=== PATIENT | male | born 1945 | race Caucasian/White ===

== ENCOUNTER → 2017-01-30 | Outpatient (CLI) | payer MEDICARE ==
[~2017-01-30] MED LIST: REGADENOSON 0.4 MG/5 ML SYRINGE IV ONE
--- NOTE | 2017-01-30 11:43 | NM ---
EXAMINATION TYPE: NM stress lexiscan cardiolite DATE OF EXAM: 01/30/2017 COMPARISON: NONE HISTORY: 71-year-old male with chest pain TECHNIQUE: After the intravenous administration of 9.8 mCi Tc 99m Sestamibi - Cardiolite resting SPE CT images acquired 45 minutes post injection. The patient received 0.4mg Lexiscan, 26.85 mCi Tc 99m Sestamibi - Stress images obtained 30 minutes p ost injection FINDINGS: Review of stress and rest SPECT images demonstrates decreased perfusion along the mid to basal inferi or wall on both rest and stress images. Wall diaphragmatic attenuation as possible, there may be some hypokinesis on the gated images. No distinct reversible perfusion abnormality is identified. Gated a nalysis shows estimated left ventricular ejection fraction of 59 %. TID is calculated at 0.9, normal . IMPRESSION: Findings equivocal for diaphragmatic attenuation or old mid to basal inferior wall infarct. No defini te suspicious reversibility.
--- NOTE | 2017-01-30 14:41 | EST ---
DATE OF SERVICE: 01/30/2017 TYPE OF REPORT: LEXISCAN CARDIOLITE STRESS TEST INDICATION: Chest pain. BASELINE HEART RATE: 76 BASELINE BLOOD PRESSURE: 127/75 MAXIMUM HEART RATE: 81 MAXIMUM BLOOD PRESSURE: 130/84 85% MPHR: 128 100% MPHR: 151 METS: - MAXIMUM STAGE REACHED: - TOTAL EXERCISE TIME: - Baseline EKG revealed atrial fibrillation, controlled ventricular rate, nonspecific ST-T changes with Lexiscan imaging. Heart rate was changed from 76 to 81 beats per minute and blood pressure changed from 125/75 to 130/84. EKG remained inconclusive and patient did not have any clearcut angina. IMPRESSION: 1. By EKG criteria, this is an inconclusive Lexiscan stress test with underlying atrial fibrillation and nonspecific ST-T changes. 2. The nuclear scan results which are more pertinent, will be reported by the radiologist. EDUARDO
== END ==
LOC: RADNMMAIN 08:22
PROVIDERS: ATTEND Family Medicine
DX: I48.0 Paroxysmal atrial fibrillation (principal); R07.89 Other chest pain
CPT/HCPCS: 93017; 78452; A9500; J2785

== ENCOUNTER → 2021-02-27 | Outpatient (CLI) | payer MEDICARE ==
[~2021-02-27] MED LIST changes: -REGADENOSON 0.4 MG/5 ML SYRINGE IV ONE; +REGADENOSON 0.4 MG/5 ML SYRINGE IV PRN
--- NOTE | 2021-02-27 13:24 | NM ---
EXAMINATION TYPE: NM stress lexiscan cardiolite DATE OF EXAM: 02/27/2021 COMPARISON: Earlier nuclear medicine stress test January 30, 2017 HISTORY: History of emphysema and family history of heart attack along with personal history of hyper tension and hypercholesterolemia and diabetes. Patient presents with chest pain and difficulty in og athing. TECHNIQUE: After the intravenous administration of 9.7 mCi Tc 99m Sestamibi - Cardiolite resting SPE CT images acquired 45 minutes post injection. The patient received 0.4mg Lexiscan, 26.6 mCi Tc 99m Sestamibi - Stress images obtained [address] injection FINDINGS: Review of stress and rest SPECT images demonstrates areas of diminished radiotracer uptake anterosept al wall with apical levels similar to prior suggestive of old infarct. No reversible ischemia on toda y's study. Gated analysis shows overall estimated left ventricular ejection fraction of 50 % on curr ent study. IMPRESSION: No scintigraphic evidence for reversible ischemia. No significant change from prior.
--- NOTE | 2021-02-27 14:32 | EST ---
EXERCISE STRESS AGE: 75 SEX: M HT: 5'9" WT: 285 lbs. PROTOCOL: Lexiscan STAGE: NA DURATION OF EXERCISE: NA HEART RATE REST: 77 BLOOD PRESSURE REST: 136/87 MAXIMUM HEART RATE ACHIEVED: 86 MAXIMUM BLOOD PRESSURE: 137/83 85% MPHR: 125 100% MPHR: 147 METS: NA INDICATIONS: Chest pain CLINICAL INFORMATION: STRESS DATA: Heart rate 77, pressure is 136/87 mmHg. Baseline EKG showed atrial fibrillation. 0.4 mg of Lexiscan given over 15 seconds per protocol. Max heart rate was 86 beats per minute and maximum pressure was 136/87 mmHg. Clinically, the patient did not have any symptoms and the EKG did not show any significant ST or T-wave abnormalities concerning for ischemia. CONCLUSION: 1. Nondiagnostic electrocardiogram stress testing in response to Lexiscan. 2. Please follow up on the Cardiolite portion on a separate report from Radiology. MMODL / IJN: [id number] /
== END | disposition home or self-care (01) ==
LOC: RADNMMAIN 08:33
PROVIDERS: ATTEND Family Medicine
DX: R07.9 Chest pain, unspecified (principal); R06.89 Other abnormalities of breathing; I10 Essential (primary) hypertension; E11.9 Type 2 diabetes mellitus without complications; Z82.49 Family history of ischemic heart disease and other diseases of the circulatory system
CPT/HCPCS: 93017; 78452; A9500; J2785

== ENCOUNTER → 2021-03-31 | Outpatient (CLI) | payer MEDICARE ==
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
== END | disposition home or self-care (01) ==
LOC: RADXRMAIN 11:48
PROVIDERS: ATTEND Family Medicine
DX: R91.8 Other nonspecific abnormal finding of lung field (principal)
CPT/HCPCS: 71046

== ENCOUNTER → 2022-06-15 | Outpatient (CLI) | payer MEDICARE, OTHER ==
[2022-06-15 12:27] LABS: African American GFR (CKD) >90 (>60 ml/min/1.73 sqM); Blood Urea Nitrogen 27 mg/dL (9-20); Non-African American GFR(CKD) 79 (>60 ml/min/1.73 sqM)
--- NOTE | 2022-06-15 13:31 | CT ---
Exam: CT Chest with contrast. Date: . Comparison: None available. History: Shortness of breath and fatigue. Technique: CT examination of the chest was performed with contrast. 70 mL of Isovue-300 was given int ravenously. Coronal and sagittal reformats were performed. CT dose lowering techniques were used, to include: automated exposure control, adjustment for patient size, and/or use of iterative reconstruct ion. FINDINGS: CHEST WALL: There is mild gynecomastia. An area of metallic shrapnel seen within the right axillary r egion.0 Mediastinum and Katelin: There is no axillary, mediastinal or hilar lymphadenopathy. Pleural and Pericardial spaces: There are no pleural or pericardial effusions. Upper Abdomen: There is mild diffuse decreased attenuation of the liver compatible fatty liver infilt ration. The gallbladder surgically absent. The remainder the visualized upper abdomen appears unremar kable. There is severe diffuse coronary artery calcifications. Cardiovascular: The thoracic aorta is normal in size. Lung Parenchyma and Airways: The lungs are clear. Bones: No fracture or aggressive osseous lesion. IMPRESSION: 1. No acute abnormality in the chest. 2. Severe coronary calcifications. 3. Diffuse hepatic steatosis.
== END | disposition home or self-care (01) ==
LOC: RADCTMAIN 11:34
PROVIDERS: ATTEND Family Medicine
DX: K76.0 Fatty (change of) liver, not elsewhere classified (principal); I25.10 Atherosclerotic heart disease of native coronary artery without angina pectoris; J44.1 Chronic obstructive pulmonary disease with (acute) exacerbation; R06.02 Shortness of breath
CPT/HCPCS: 82565; 84520; 71260; 36415; Q9967

== ENCOUNTER → 2022-09-24 | Outpatient (CLI) | payer MEDICARE ==
--- NOTE | 2022-09-24 15:00 | NM ---
EXAMINATION TYPE: NM stress lexiscan cardiolite DATE OF EXAM: 09/24/2022 COMPARISON: NONE HISTORY: I20.9 angina pectoris TECHNIQUE: After the intravenous administration of 9.9 mCi Tc 99m Sestamibi - Cardiolite resting SPE CT images acquired 60 minutes post injection. The patient received 0.4mg Lexiscan, 26.2 mCi Tc 99m Sestamibi - Stress images obtained [address] injection FINDINGS: Review of stress and rest SPECT images demonstrates areas of reversible ischemia involving the latera l wall as well as the apical septal region. Correlate clinically. Gated analysis shows normal wall mo tion with an estimated left ventricular ejection fraction of 51 %. IMPRESSION: areas of reversible ischemia involving the lateral wall as well as the apical septal region. Correlat e clinically.
--- NOTE | 2022-09-24 19:50 | CA ---
Lexiscan Nuclear Stress Test Report Name: Jim Ruiz Exam Date: 09/24/2022 10:39 Exam Location: [place] Stress Ht (in): 68 Wt (lb): 265 BSA: 2.30 Ordering Phys: Sparkle Savage DO Referring Phys: SPARKLE SAVAGE,, Technologist: [employer],, Age: 77 Gender: M : 1945 Procedure CPT: Indications: I20.9 angina pectoris ICD-10 Codes: Patient History: Chest Pain Medications: Meds past 24 hrs: Pretest Chest Pain: STRESS TEST Lexiscan Protocol Exercise Duration (min:sec): 02:[address] Depressions (mm): Angina Score: Guerin Score: Resting HR (bpm): 70 Peak HR (bpm): 92 Resting BP (mmHg): 143 / 110 Peak BP (mmHg): 122 / 86 MPHR: 145 Target HR: 123 % MPHR: 63 METS: 1.0 Total Dose: Peak Dose: Atropine: Double Product: 46033 BP Response: Stress Termination: Infusion complete Stress Symptoms: Dyspnea Stress Summary: ECG ANALYSIS Resting ECG: Stress ECG: CONCLUSIONS Z scan Cardiolite stress test Baseline 20 EKG showed sinus rhythm with PACs number ST segments Baseline heart rate 70 beats a minute, Baseline blood pressure 143/110 mmHg Patient received Lexiscan infusion per protocol No new ECG abnormalities No evidence for ischemia Nuclear portion will be reported separately Dr. Tylor Stephens MD (Electronically Signed) Final Date: 24 September 2022 19:49
== END | disposition home or self-care (01) ==
LOC: RADNMMAIN 08:05
PROVIDERS: ATTEND Family Medicine
DX: I25.10 Atherosclerotic heart disease of native coronary artery without angina pectoris (principal)
CPT/HCPCS: 78452; 93017

== ENCOUNTER → 2022-09-25 | Outpatient (CLI) | payer MEDICARE ==
--- NOTE | 2022-09-25 13:31 | CT ---
EXAMINATION TYPE: CT lumbar spine w con DATE OF EXAM: 09/25/2022 COMPARISON: None HISTORY: back pain CT DLP: 2250.[address] of the lumbar spine was performed. Bone and soft tissue window settings are submitted as well as coronal and sagittal reconstructions. L1-L2: Normal disc space height. No disc herniation protrusion or central stenosis. No facet joint arthropathy. No evidence for foraminal encroachment. L2-L3: Mild degenerative disc space narrowing and posterior disc bulge. There is effacement of the ve ntral thecal sac with borderline central stenosis. No evidence for disc herniation. Neural foramina a re patent. L3-L4: Mild degenerative disc space narrowing and circumferential disc bulge greatest posteriorly. Ef facement of ventral thecal sac with mild central stenosis. Mild bilateral neural foraminal encroachme nt. L4-L5: Grade 1 anterolisthesis L4 on L5 measuring 3 mm. Degenerative disc space narrowing with modera te diffuse posterior disc bulge resulting in moderate to severe central stenosis. There is bilateral neural foraminal encroachment and facet joint arthropathy. L5-S1: Mild degenerative disc space narrowing . Posterior disc bulge without central stenosis or dis c herniation. There is mild right foraminal encroachment. Facet joint arthropathy noted. No evidence of paraspinal mass. No paraspinal masses are identified. Lumbar segments are free if fracture. IMPRESSION: 1. Multilevel degenerative disc disease with multilevel central stenosis greatest at L4-5.
== END | disposition home or self-care (01) ==
LOC: RADCTMAIN 11:46
PROVIDERS: ATTEND Family Medicine
DX: M51.36 Other intervertebral disc degeneration, lumbar region (principal); M48.061 Spinal stenosis, lumbar region without neurogenic claudication; M43.16 Spondylolisthesis, lumbar region; M47.817 Spondylosis without myelopathy or radiculopathy, lumbosacral region; M99.73 Connective tissue and disc stenosis of intervertebral foramina of lumbar region; M51.26 Other intervertebral disc displacement, lumbar region; M79.5 Residual foreign body in soft tissue
CPT/HCPCS: 82565; 84520; 72132; 36415; Q9967

== ENCOUNTER 2023-01-28 10:09 | Day surgery (SDC) | payer MEDICARE ==
[~2023-01-28 10:09] MED LIST changes: +ALPRAZolam 0.25 MG TAB PO PRN; +ALPRAZolam 0.5 MG TAB PO PRN; +ASPIRIN 325 MG TAB PO STA; +NITROGLYCERIN SL TABS 0.4 MG TAB SUBLINGUAL PRN; -REGADENOSON 0.4 MG/5 ML SYRINGE IV PRN; +SODIUM CHLORIDE 0.9% 1,000 ML in EMPTY BAG 1 BAG IV SCH
[2023-01-28 11:09] LABS: Glucose,Whole Blood 213 mg/dL (70-110)
[2023-01-28 11:16] VITALS: RESP 16; TEMP 97
[2023-01-28] MEDS ORDERED: SODIUM CHLORIDE 0.9% 1,000 ML IV ONE (11:18)
[2023-01-28 11:27] LABS: Basophils % (A) 0 %; Eosinophils # (A) 0.2 k/uL (0-0.7); Eosinophils % (A) 3 %; HCT 47.7 % (39.0-53.0); HGB 16.4 gm/dL (13.0-17.5); Lymphocytes % (A) 27 %; MCH 34.1 pg (25.0-35.0); MCHC 34.3 g/dL (31.0-37.0); MCV 99.7 fL (80.0-100.0); Mean Platelet Volume 7.3; Monocytes # (A) 0.6 k/uL (0-1.0); Monocytes % (A) 8 %; Neutrophils # (A) 4.4 k/uL (1.3-7.7); Neutrophils % (A) 59 %; Platelet Count 209 k/uL (150-450); RBC 4.79 m/uL (4.30-5.90); RDW 13.3 % (11.5-15.5); WBC 7.4 k/uL (3.8-10.6)
[2023-01-28 11:31] LABS: INR 1.6 (<1.2); Prothrombin Time 16.1 sec (9.0-12.0)
[2023-01-28 11:42] LABS: Potassium 4.9 mmol/L (3.5-5.1)
[2023-01-28 11:43] LABS: African American GFR (CKD) 61 (>60 ml/min/1.73 sqM); Anion Gap 11 mmol/L; Blood Urea Nitrogen 30 mg/dL (9-20); Calcium 9.3 mg/dL (8.4-10.2); Carbon Dioxide 23 mmol/L (22-30); Chloride 102 mmol/L (98-107); Glucose 213 mg/dL (74-99); Non-African American GFR(CKD) 53 (>60 ml/min/1.73 sqM); Sodium 136 mmol/L (137-145)
[2023-01-28] MEDS ORDERED: VERAPAMIL 2.5 MG/ML 2 ML AMP ONE (12:31)
[2023-01-28] MEDS ORDERED: LIDOCAINE 1% INJ 10MG/ML (20 ML MDV) ONE (12:31)
[2023-01-28] MEDS ORDERED: HEPARIN SODIUM 1,000 UN/ML (10ML VL) ONE (12:56)
[2023-01-28] MEDS ORDERED: fentaNYL (PF) 50 MCG/ML 2 ML AMP ONE (12:56)
[2023-01-28] MEDS ORDERED: MIDAZOLAM 2 MG/2 ML VIAL IVP ONE (13:00)
[2023-01-28] MEDS ORDERED: fentaNYL (PF) 50 MCG/1 ML VIAL IVP ONE (13:00)
[2023-01-28] MEDS ORDERED: LIDOCAINE 1% INJ 10MG/ML (20 ML MDV) SQ ONE (13:01)
[2023-01-28] MEDS ORDERED: VERAPAMIL SYRINGE (5 MG/10 ML) INTRAARTER ONE (13:04)
[2023-01-28] MEDS: HEPARIN SODIUM 1,000 UN/ML (10ML VL) IV ONE ×2 (13:07→13:20)
[2023-01-28] MEDS ORDERED: IOPAMIDOL-370 100ML BTL INJ ONE (13:23)
--- NOTE | 2023-01-28 13:37 | P.CARDCATH ---
Description of Procedure: PROCEDURES PERFORMED: Left heart catheterization, bilateral coronary angiography, ultrasound guided arterial access, iFR LAD, iFR RCA INDICATION: Abnormal stress test CONSENT:I have discussed the risks, benefits and alternative therapies for the above-mentioned procedure and for both sedation/analgesia as well as necessary blood product administration, if indicated, as they pertain to this patient. The patient has indicated understanding and acceptance of the risks and procedures discussed. PROCEDURE: After the risks, benefits and alternatives of the above mentioned procedure explained in detail with the patient, informed consent was obtained. Patient was taken to the catheterization lab and prepped and draped in usual f ashion. Ultrasound guidance was used to assess for arterial access. 1% lidocaine was used to anesthetize the right radial artery. A 6-[place] sheath was placed in the right radial artery using modified Seldinger technique and ultrasound guidance. Left coronary angiography was performed with a 5-[place]an JL 3.5 catheter and right coronary angiography was performed with a 5-[place] JR5 catheter in various views. A 5-[place] FR5 catheter was inserted into the left ventricle and pressure measurements were obtained. The decision was made to perform iFR of the RCA and LAD. Using the diagnostic catheters, 0.014 pressure wire was advanced in the proximal RCA and normalized. It was then advanced 1 cm distal to the mid RCA lesion and iFR was normal at 0.98. There was no drift with pullback. Next, the 0.014 pressure wire was advanced into the proximal left main and normalized. It was then advanced 1 cm distal to the mid LAD lesion and iFR was performed and was normal at 0.93. The right radial sheath was removed and a TR band was placed with hemostasis achieved. The patient tolerated the procedure well. Patient was transported back to the post catheterization holding area in stable condition. Conscious Sedation: Patient was monitored under the direct supervision of myself for conscious sedation using Versed and fentanyl for a total duration of 22 minutes HEMODYNAMICS: Aorta: 118/82 LV: 1:15/8, LVEDP 22 SELECTIVE CORONARY ARTERIOGRAPHY: LEFT MAIN: The left main is a large caliber vessel which bifurcates into the LAD and circumflex. There is no significant stenosis. LEFT ANTERIOR DESCENDING CORONARY ARTERY: LAD is a large caliber vessel which wraps around to the apex. There is a long mid LAD 50% stenosis and otherwise mild luminal irregularities. Diagonal 1 has a mid 30-40% stenosis. There is SHER 2 flow. LEFT CIRCUMFLEX CORONARY ARTERY: Left circumflex is a moderate caliber vessel. The circumflex has mild luminal irregularities with 20-30% circumflex stenosis. There is SHER 2 flow. RIGHT CORONARY ARTERY: The right coronary artery is a large caliber vessel which gives off a PDA and PLV branch and is the dominant vessel. There are mild luminal irregularities and 40-50% mid RCA stenosis. There is SHER 2 flow. FINAL IMPRESSION: 1. Mild to moderate CAD as described above including mid LAD 50%, mid RCA 40- 50% stenosis and otherwise mild luminal irregularities. 2. iFR LAD and RCA normal 3. Elevated left sided filling pressures 4. SHER 2 flow in all coronary arteries may be consistent with microvascular disease 5. Incidental A. fib noted throughout exam PLAN: 1. Aggressive risk factor modification per most recent ACC/AHA guidelines. 2. Continue with current regimen and consider increasing antianginals upset having significant angina. Concern of possible microvascular disease with SHER 2 flow noted in epicardial coronary arteries.
[2023-01-28 16:22] VITALS: BP 120/68; PULSE 76
== END 2023-01-28 16:37 | disposition home or self-care (01) ==
LOC: CATHCVL 10:09
PROVIDERS: ATTEND Internal Medicine
DX: I25.10 Atherosclerotic heart disease of native coronary artery without angina pectoris (principal); I10 Essential (primary) hypertension; E11.9 Type 2 diabetes mellitus without complications; E78.5 Hyperlipidemia, unspecified; E66.01 Morbid (severe) obesity due to excess calories; Z79.810 Long term (current) use of selective estrogen receptor modulators (SERMs); Z79.02 Long term (current) use of antithrombotics/antiplatelets; Z79.899 Other long term (current) drug therapy
CPT/HCPCS: 93458; 93799; 76937; 80048; 85025; 85610; C1769 ×2; C1894; J2250; J2001; J1644; Q9967; J3010

== ENCOUNTER 2023-12-20 18:49 | Emergency (ER) | payer MEDICARE ==
[2023-12-20 19:02] LABS: Glucose,Whole Blood 369 mg/dL (70-110)
[2023-12-20 19:04] VITALS: TEMP 97.8
--- NOTE | 2023-12-20 19:37 | ED ---
Recheck HPI - General Chief Complaint: Recheck/Abnormal Lab/Rx Stated Complaint: Hyperglycemia Time Seen by Provider: 12/20/23 19:35 Source: patient, family, RN notes reviewed Mode of arrival: ambulatory Limitations: no limitations - History of Present Illness Initial Comments: 78-year-old male presenting to the ER for evaluation of hyperglycemia. Patient has a past medical history significant of atrial fibrillation, type 2 diabetes and hypertension. He is currently taking Jardiance 12.5 mg by mouth daily for diabetes. Patient reports on 12-18-2023 he was scheduled for carpal tunnel surgery but surgery was unable to be completed due to his hyperglycemia. Patient states at that time blood sugar was 369. Yesterday reports patient checked his blood sugar was 340s. Today they rechecked his blood sugar it was in the 360s which brought him to the ER for evaluation. Patient also reports that for the past 3 to 4 weeks he has been having diarrhea and associated nausea with bowel movements. reports he also has been extremely thirsty. Patient denies any fevers, chills, chest pain, shortness of breath, abdominal pain, urinary complaints or peripheral edema. - Related Data Home Medications Medication Instructions Recorded Confirmed Albuterol Sulfate [Proair 2 puff PO Q6H PRN 02/25/15 01/28/23 Respiclick] Aspirin 81 mg PO DAILY 02/25/15 01/28/23 Ergocalciferol [Vitamin D2] 50,000 unit PO Q7D 02/25/15 01/24/23 Losartan [Cozaar] 25 mg PO DAILY 02/25/15 01/24/23 Atorvastatin Calcium [Lipitor] 40 mg PO DAILY 01/24/23 01/24/23 Empagliflozin [Jardiance] 12.5 mg PO DAILY 01/24/23 01/28/23 Finasteride [Proscar] 5 mg PO DAILY 01/24/23 01/24/23 Isosorbide Mononitrate ER [Imdur] 30 mg PO DAILY 01/24/23 01/24/23 PARoxetine HCL 20 mg PO DAILY 01/24/23 01/24/23 Repaglinide 1 mg PO BID 01/24/23 01/28/23 Warfarin [Coumadin] 5 mg PO DAILY 01/24/23 01/28/23 allopurinoL 300 mg PO DAILY 01/24/23 01/24/23 atenoloL [Tenormin] 50 mg PO QAM 01/24/23 01/24/23 atenoloL [Tenormin] 100 mg PO HS 01/24/23 01/28/23 buPROPion HCL [Wellbutrin XL] 150 mg PO DAILY 01/24/23 01/24/23 Allergies Allergy/AdvReac Type Severity Reaction Status Date / Time No Known Allergies Allergy Verified 12/20/23 19:04 Review of Systems ROS Statement: Those systems with pertinent positive or pertinent negative responses have been documented in the HPI. ROS Other: All systems not noted in ROS Statement are negative. Past Medical History Past Medical History: Atrial Fibrillation, Chest Pain / Angina, Diabetes Mellitus, Hypertension, Sleep Apnea/CPAP/BIPAP Additional Past Medical History / Comment(s): SOB, USES CPAP,CATARACTS SUPA EYES, Diabetes Type 2- no insulin History of Any Multi-Drug Resistant Organisms: None Reported Past Surgical History: Cholecystectomy Additional Past Surgical History / Comment(s): CARDIOVERSION, LOOP RECORDER LT CHEST,LT CATARACT Past Anesthesia/Blood Transfusion Reactions: No Reported Reaction Past Psychological History: Anxiety, Depression Smoking Status: Former smoker Past Alcohol Use History: Occasional Past Drug Use History: None Reported - Past Family History Father Additional Family Medical History / Comment(s): BLOOD CLOT IN THE HEART. Mother Family Medical History: CVA/TIA General Exam Limitations: no limitations General appearance: alert, in no apparent distress Respiratory exam: Present: normal lung sounds bilaterally. Absent: respiratory distress, wheezes, rales, rhonchi, stridor Cardiovascular Exam: Present: regular rate, irregular rhythm, normal heart sounds. Absent: systolic murmur, diastolic murmur, rubs, gallop, clicks GI/Abdominal exam: Present: soft, normal bowel sounds. Absent: distended, tenderness, guarding, rebound, rigid Extremities exam: Present: normal inspection, full ROM, normal capillary refill. Absent: tenderness, pedal edema, joint swelling, calf tenderness Skin exam: Present: warm, dry, intact, normal color. Absent: rash Course Vital Signs 12/20/23 12/20/23 18:58 21:23 Temperature 97.8 F Pulse Rate 73 50 L Respiratory 18 16 Rate Blood Pressure 101/72 132/87 O2 Sat by Pulse 96 97 Oximetry Medical Decision Making - Medical Decision Making Was pt. sent in by a medical professional or institution (DEWEY King, BINDERY MANAGER, urgent care, hospital, or usp...) When possible be specific @ -No Did you speak to anyone other than the patient for history (EMS, parent, family, police, friend...)? What history was obtained from this source @ - aiding in past medical history Did you review nursing and triage notes (agree or disagree)? Why? @ -I reviewed and agree with nursing and triage notes Were old charts reviewed (outside hosp., previous admission, EMS record, old EKG, old radiological studies, urgent care reports/EKG's, usp records)? Report findings @ -No old charts were reviewed Differential Diagnosis (chest pain, altered mental status, abdominal pain women, abdominal pain men, vaginal bleeding, weakness, fever, dyspnea, syncope, headache, dizziness, GI bleed, back pain, seizure, CVA, palpatations, mental health, musculoskeletal)? @ -DKA, hyperglycemia, HHS This list is not meant to be all-inclusive EKG interpreted by me (3pts min.). @ -None X-rays interpreted by me (1pt min.). @ -[None done CT interpreted by me (1pt min.). @ -None done U/S interpreted by me (1pt. min.). @ -None done What testing was considered but not performed or refused? (CT, X-rays, U/S, labs)? Why? @ -None What meds were considered but not given or refused? Why? @ -None Did you discuss the management of the patient with other professionals (professionals i.e. DEWEY King, BINDERY MANAGER, lab, RT, psych nurse, rn social work, skoog patching machine operator, teacher, control officer manager, correctional case records supervisor)? Give summary @ -No Was smoking cessation discussed for >3mins.? @ -No Was critical care preformed (if so, how long)? @ -No Were there social determinants of health that impacted care today? How? (Homelessness, low income, unemployed, alcoholism, drug addiction, transportation, low edu. Level, literacy, decrease access to med. care, skilled nursing, rehab)? @ -No Was there de-escalation of care discussed even if they declined (Discuss DNR or withdrawal of care, Hospice)? DNR status @ -No What co-morbidities impacted this encounter? (DM, HTN, Smoking, COPD, CAD, Cancer, CVA, ARF, Chemo, Hep., AIDS, mental health diagnosis, sleep apnea, morbid obesity)? @ -Type 2 diabetes/obese Was patient admitted / discharged? Hospital course, mention meds given and route, prescriptions, significant lab abnormalities, going to OR and other pertinent info. @ -Discharge. 78-year-old male presented to the ER with a chief complaint of hyperglycemia. History and physical exam completed. Vitals stable. Patient in no signs of acute distress and nontoxic-appearing. Exam unimpressive. Laboratory studies obtained remarkable for glucose of 369 for which patient received 10 units SQ insulin. Urinalysis showing 3+ glucose which is likely related to diabetic medications. Acetone and urine ketones negative. Urine showing moderate blood with large leukocyte esterases and 7 white blood cells. Patient will not be started on antibiotics at this time as he is denying urinary complaints. Urine sent for culture. Patient received 500 mL of IV fluids. Upon reevaluation, patient resting comfortably in exam room in no signs of acute distress. Results discussed with patient, all questions answered. I advised extremely close follow-up with PCP and continued use of current diabetic medications. Diet modifications and exercise encouraged. Strict return parameters discussed. Patient discharged in stable condition. Patient and , at bedside, verbally expressed understanding and agreement with care plan. Case discussed with ED attending, Dr. Mariscal. Undiagnosed new problem with uncertain prognosis? @ -No Drug Therapy requiring intensive monitoring for toxicity (Heparin, Nitro, Insulin, Cardizem)? @ -No Were any procedures done? @ -No Diagnosis/symptom? @ -Hyperglycemia Acute, or Chronic, or Acute on Chronic? @ -Acute Uncomplicated (without systemic symptoms) or Complicated (systemic symptoms)? @ -Uncomplicated Side effects of treatment? @ -No Exacerbation, Progression, or Severe Exacerbation? @ -No Poses a threat to life or bodily function? How? (Chest pain, [place], [place], pneumonia, PE, COPD, DKA, ARF, appy, cholecystitis, CVA, Diverticulitis, Homicidal, Suicidal, threat to staff... and all critical care pts) @ -No - Lab Data Result diagrams: 12/20/23 20:05 12/20/23 20:05 Lab Results 12/20/23 12/20/2324 Range/Units 19:01 20:05 20:05 WBC 8.5 (3.8-10.6) k/uL RBC 4.31 (4.30-5.90) m/uL Hgb 15.0 (13.0-17.5) gm/dL Hct 44.8 (39.0-53.0) % MCV 103.9 H (80.0-100.0) fL MCH 34.8 (25.0-35.0) pg MCHC 33.5 (31.0-37.0) g/dL RDW 12.8 (11.5-15.5) % Plt Count 180 (150-450) k/uL MPV 7.7 Neutrophils % 60 % Lymphocytes % 29 % Monocytes % 7 % Eosinophils % 1 % Basophils % 1 % Neutrophils # 5.1 (1.3-7.7) k/uL Lymphocytes # 2.5 (1.0-4.8) k/uL Monocytes # 0.6 (0-1.0) k/uL Eosinophils # 0.1 (0-0.7) k/uL Basophils # 0.0 (0-0.2) k/uL Macrocytosis Slight Sodium (137-145) mmol/L Potassium (3.5-5.1) mmol/L Chloride (98-107) mmol/L Carbon Dioxide (22-30) mmol/L Anion Gap mmol/L BUN (9-20) mg/dL Creatinine (0.66-1.25) mg/dL Est GFR (CKD-EPI)AfAm (>60 ml/min/1.73 sqM) Est GFR (CKD-EPI)NonAf (>60 ml/min/1.73 sqM) Glucose (74-99) mg/dL POC Glucose (mg/dL) 369 H (70-110) mg/dL POC Glu [employer] Applicator ID Carol Pang Calcium (8.4-10.2) mg/dL Total Bilirubin (0.2-1.3) mg/dL AST (17-59) U/L ALT (4-49) U/L Alkaline Phosphatase (38-126) U/L Total Protein (6.3-8.2) g/dL Albumin (3.5-5.0) g/dL Urine Color Colorless Urine Appearance Clear (Clear) Urine pH 5.0 (5.0-8.0) Ur Specific [place] 1.008 (1.001-1.035) Urine Protein Negative (Negative) Urine Glucose (UA) 3+ H (Negative) Urine Ketones Negative (Negative) Urine Blood Moderate H (Negative) Urine Nitrite Negative (Negative) Urine Bilirubin Negative (Negative) Urine Urobilinogen <2.0 (<2.0) mg/dL Ur Leukocyte Esterase Large H (Negative) Urine RBC 5 (0-5) /hpf Urine WBC 7 H (0-5) /hpf Ur Squamous Epith Cells <1 (0-4) /hpf Urine Bacteria Rare H (None) /hpf Urine Mucus Rare H (None) /hpf Acetone, Qual (Negative) 12/20/23 Range/Units 20:05 WBC (3.8-10.6) k/uL RBC (4.30-5.90) m/uL Hgb (13.0-17.5) gm/dL Hct (39.0-53.0) % MCV (80.0-100.0) fL MCH (25.0-35.0) pg MCHC (31.0-37.0) g/dL RDW (11.5-15.5) % Plt Count (150-450) k/uL MPV Neutrophils % % Lymphocytes % % Monocytes % % Eosinophils % % Basophils % % Neutrophils # (1.3-7.7) k/uL Lymphocytes # (1.0-4.8) k/uL Monocytes # (0-1.0) k/uL Eosinophils # (0-0.7) k/uL Basophils # (0-0.2) k/uL Macrocytosis Sodium 136 L (137-145) mmol/L Potassium 4.6 (3.5-5.1) mmol/L Chloride 100 (98-107) mmol/L Carbon Dioxide 28 (22-30) mmol/L Anion Gap 8 mmol/L BUN 23 H (9-20) mg/dL Creatinine 1.16 (0.66-1.25) mg/dL Est GFR (CKD-EPI)AfAm 71 (>60 ml/min/1.73 sqM) Est GFR (CKD-EPI)NonAf 61 (>60 ml/min/1.73 sqM) Glucose 369 H (74-99) mg/dL POC Glucose (mg/dL) (70-110) mg/dL POC Glu [employer] Applicator ID Calcium 9.4 (8.4-10.2) mg/dL Total Bilirubin 1.5 H (0.2-1.3) mg/dL AST 54 (17-59) U/L ALT 50 H (4-49) U/L Alkaline Phosphatase 62 (38-126) U/L Total Protein 7.4 (6.3-8.2) g/dL Albumin 4.4 (3.5-5.0) g/dL Urine Color Urine Appearance (Clear) Urine pH (5.0-8.0) Ur Specific [place] (1.001-1.035) Urine Protein (Negative) Urine Glucose (UA) (Negative) Urine Ketones (Negative) Urine Blood (Negative) Urine Nitrite (Negative) Urine Bilirubin (Negative) Urine Urobilinogen (<2.0) mg/dL Ur Leukocyte Esterase (Negative) Urine RBC (0-5) /hpf Urine WBC (0-5) /hpf Ur Squamous Epith Cells (0-4) /hpf Urine Bacteria (None) /hpf Urine Mucus (None) /hpf Acetone, Qual Negative (Negative) Disposition Clinical Impression: Hyperglycemia Disposition: HOME SELF-CARE Condition: Stable Instructions (If sedation given, give patient instructions): Type 2 Diabetes in the Older Adult (ED), Diabetes and Nutrition (ED), Diabetes and Exercise (ED) Additional Instructions: Continue taking medications as prescribed. Please follow-up with Dr. Savage next week. Return to the ER for any new or worsening concerns. Is patient prescribed a controlled substance at d/c from ED?: No Referrals: Sparkle Savage DO [Primary Care Provider] - 1-2 days Time of Disposition: 21:06
[2023-12-20] MEDS: SODIUM CHLORIDE 0.9% 500 ML 500 ML IV STA (20:21)
[2023-12-20 20:34] LABS: Basophils % (A) 1 %; Eosinophils # (A) 0.1 k/uL (0-0.7); Eosinophils % (A) 1 %; HCT 44.8 % (39.0-53.0); Lymphocytes # (A) 2.5 k/uL (1.0-4.8); Lymphocytes % (A) 29 %; MCH 34.8 pg (25.0-35.0); MCHC 33.5 g/dL (31.0-37.0); MCV 103.9 fL (80.0-100.0); Macrocytosis Slight; Mean Platelet Volume 7.7; Monocytes # (A) 0.6 k/uL (0-1.0); Monocytes % (A) 7 %; Neutrophils # (A) 5.1 k/uL (1.3-7.7); Neutrophils % (A) 60 %; Platelet Count 180 k/uL (150-450); RBC 4.31 m/uL (4.30-5.90); RDW 12.8 % (11.5-15.5); WBC 8.5 k/uL (3.8-10.6)
[2023-12-20 20:36] LABS: Appearance,Urine Clear (Clear); Bacteria,Urine Rare /hpf; Bilirubin,Urine Negative (Negative); Blood,Urine Moderate (Negative); Color,Urine Colorless; Glucose,Urine (UA) 3+ (Negative); Ketones,Urine Negative (Negative); Leukocyte Esterase,Urine Large (Negative); Mucus,Urine Rare /hpf; Nitrite,Urine Negative (Negative); Protein,Urine Negative (Negative); RBC,Urine 5 /hpf (0-5); Specific Gravity,Urine 1.008 (1.001-1.035); Squamous Epithelial Cell,Urine <1 /hpf (0-4); Urobilinogen,Urine <2.0 mg/dL (<2.0); WBC,Urine 7 /hpf (0-5)
[2023-12-20 20:48] LABS: ALT 50 U/L (4-49); AST 54 U/L (17-59); African American GFR (CKD) 71 (>60 ml/min/1.73 sqM); Albumin 4.4 g/dL (3.5-5.0); Alkaline Phosphatase 62 U/L (38-126); Anion Gap 8 mmol/L; Blood Urea Nitrogen 23 mg/dL (9-20); Calcium 9.4 mg/dL (8.4-10.2); Carbon Dioxide 28 mmol/L (22-30); Chloride 100 mmol/L (98-107); Glucose 369 mg/dL (74-99); Non-African American GFR(CKD) 61 (>60 ml/min/1.73 sqM); Potassium 4.6 mmol/L (3.5-5.1); Sodium 136 mmol/L (137-145); Total Bilirubin 1.5 mg/dL (0.2-1.3); Total Protein 7.4 g/dL (6.3-8.2)
[2023-12-20] MEDS: INSULIN ASPART (NovoLOG) 100 UNIT/ML VIAL SQ ONE (20:55)
[2023-12-20 21:25] VITALS: BP 132/87; PULSE 50; RESP 16
== END 2023-12-20 21:23 | disposition home or self-care (01) ==
LOC: EC 18:49
DX: E11.65 Type 2 diabetes mellitus with hyperglycemia (principal); Z87.891 Personal history of nicotine dependence; Z90.49 Acquired absence of other specified parts of digestive tract; Z79.84 Long term (current) use of oral hypoglycemic drugs; Z79.899 Other long term (current) drug therapy
CPT/HCPCS: 36415; 80053; 81001; 82009; 85025; 87086; 96360; 99284

== ENCOUNTER 2024-02-29 15:48 | Emergency (ER) | payer MEDICARE ==
[2024-02-29 15:53] VITALS: TEMP 97.6
[2024-02-29 15:58] LABS: Glucose,Whole Blood 127 mg/dL (70-110)
--- NOTE | 2024-02-29 16:11 | ED ---
Nausea/Vomiting/Diarrhea HPI - General Source: patient, RN notes reviewed Mode of arrival: ambulatory Limitations: no limitations <IsabelasherlynAnjaliDelmis - Last Filed: 02/29/24 16:11> <Denzel Wilson - Last Filed: 02/29/24 19:25> - General Chief complaint: Nausea/Vomiting/Diarrhea Stated complaint: NVD Time Seen by Provider: 02/29/24 16:01 - History of Present Illness Initial comments: Patient presents to the ED with his for evaluation. Patient states that he has had nausea, vomiting and watery diarrhea for the past 5 days or so. Patient states that he is having multiple bouts of diarrhea a day, and he describes his diarrhea as watery and green in color. Patient states that he has been able to keep down some Pedialyte, but he has not been able to keep down much else. Patient states that he feels generally weak and unwell. Patient denies known sick contact, recent travel abroad, or recent antibiotic use. Patient denies having any pain, fever or chills, headache, focal neuro deficit, chest pain, dys pnea, palpitations, cough or cold symptoms, abdominal pain, bloody or melanotic stool, hematemesis, dysuria or urinary symptoms, or any other symptoms or complaints. Patient states that he has a history of atrial fibrillation, and he is due to have an ablation procedure performed next month. (Denzel Wilson) - Related Data Home Medications Medication Instructions Recorded Confirmed Albuterol Sulfate [Proair 2 puff PO Q6H PRN 02/25/15 01/15/24 Respiclick] Aspirin 81 mg PO DAILY 02/25/15 01/16/24 Ergocalciferol [Vitamin D2] 50,000 unit PO Q7D 02/25/15 01/16/24 Losartan [Cozaar] 25 mg PO DAILY 02/25/15 01/16/24 Atorvastatin Calcium [Lipitor] 40 mg PO HS 01/24/23 01/16/24 Empagliflozin [Jardiance] 25 mg PO DAILY 01/24/23 01/16/24 Finasteride [Proscar] 5 mg PO DAILY 01/24/23 01/16/24 Isosorbide Mononitrate ER [Imdur] 30 mg PO DAILY 01/24/23 01/16/24 PARoxetine HCL 20 mg PO HS 01/24/23 01/16/24 Repaglinide 1 mg PO BID 01/24/23 01/16/24 allopurinoL 300 mg PO DAILY 01/24/23 01/16/24 Furosemide [Lasix] 40 mg PO DAILY 01/15/24 01/16/24 Rivaroxaban [Xarelto] 20 mg PO QAM 01/15/24 01/16/24 Semaglutide [Ozempic] 0.25 mg SQ WEEKLY 01/16/24 01/16/24 Previous Rx's Medication Instructions Recorded atenoloL [Tenormin] 50 mg PO DAILY #90 tab 01/16/24 Allergies Allergy/AdvReac Type Severity Reaction Status Date / Time No Known Allergies Allergy Verified 01/15/24 08:21 Review of Systems ROS Other: All systems not noted in ROS Statement are negative. <Delmis Ring - Last Filed: 02/29/24 16:11> ROS Other: All systems not noted in ROS Statement are negative. <Denzel Wilson - Last Filed: 02/29/24 19:25> ROS Statement: Those systems with pertinent positive or pertinent negative responses have been documented in the HPI. Past Medical History Past Medical History: Atrial Fibrillation, Chest Pain / Angina, COPD, Diabetes Mellitus, Hearing Disorder / Deafness, Hyperlipidemia, Hypertension, Osteoarthritis (OA), Sleep Apnea/CPAP/BIPAP Additional Past Medical History / Comment(s): SEE DR CARVAJAL'S H&P. SOB, HARD OF HEARING, USES CPAP. History of Any Multi-Drug Resistant Organisms: None Reported Past Surgical History: Cholecystectomy Additional Past Surgical History / Comment(s): CARDIOVERSION X2, LOOP RECORDER LT CHEST, LATER REMOVED, BILATERAL CATARACT Past Anesthesia/Blood Transfusion Reactions: No Reported Reaction Past Psychological History: Anxiety, Depression Smoking Status: Former smoker Past Alcohol Use History: Occasional Past Drug Use History: None Reported - Past Family History Daughter(s) Family Medical History: Cancer Additional Family Medical History / Comment(s): Thyroid cancer. Father Additional Family Medical History / Comment(s): BLOOD CLOT IN THE HEART. Mother Family Medical History: CVA/TIA <Delmis Ring - Last Filed: 02/29/24 16:11> General Exam Limitations: no limitations <Delmis Ring - Last Filed: 02/29/24 16:11> General appearance: alert Head exam: Present: atraumatic ENT exam: Present: mucous membranes dry Respiratory exam: Present: normal lung sounds bilaterally. Absent: respiratory distress, wheezes, rales, rhonchi, stridor Cardiovascular Exam: Present: regular rate, irregular rhythm, normal heart sounds, other (Normal radial pulses bilaterally) GI/Abdominal exam: Present: soft, normal bowel sounds. Absent: distended, tenderness, guarding Extremities exam: Absent: tenderness, pedal edema, calf tenderness Neurological exam: Present: alert, oriented X3. Absent: motor sensory deficit Psychiatric exam: Present: normal affect Skin exam: Present: warm, dry, normal color <Denzel Wilson - Last Filed: 02/29/24 19:25> Course <Denzel Wilson - Last Filed: 02/29/24 19:25> Vital Signs 02/29/24 15:51 Temperature 97.6 F Pulse Rate 82 Respiratory 16 Rate Blood Pressure 117/80 O2 Sat by Pulse 96 Oximetry - Reevaluation(s) Reevaluation #1: 02/29/24 19:19 Patient states that his symptoms have improved with IV fluid hydration and medications given in the ED. Patient has not had any vomiting or diarrhea/bowel movement while in the ED. Patient's abdomen remains soft and nontender on examination. Patient remains in rate controlled atrial fibrillation on the supervisory investigative specialist. Patient and are aware of the patient's test results, and patient feels comfortable being discharged home at this time. Patient was counseled about nausea/vomiting/diarrhea, and he was clearly explained return and follow-up instructions. Patient was instructed to drink plenty of water/fl uids to stay hydrated. Patient was also provided with an starter pack of Zofran in the ED. Patient was instructed to follow-up closely with his primary care provider. Patient feels comfortable with this plan. (Denzel Wilson) Medical Decision Making - Lab Data Result diagrams: 02/29/24 16:55 02/29/24 16:55 <Denzel Wilson - Last Filed: 02/29/24 19:25> - Medical Decision Making Was pt. sent in by a medical professional or institution (, PA, TRANSLATIONAL SPECIALIST, urgent care, hospital, or senior care...) When possible be specific @ -No Did you speak to anyone other than the patient for history (EMS, parent, family, police, friend...)? What history was obtained from this source @ -No Did you review nursing and triage notes (agree or disagree)? Why? @ -I reviewed and agree with nursing and triage notes Were old charts reviewed (outside hosp., previous admission, EMS record, old EKG, old radiological studies, urgent care reports/EKG's, senior care records)? Report findings @ -No old charts were reviewed Differential Diagnosis (chest pain, altered mental status, abdominal pain women, abdominal pain men, vaginal bleeding, weakness, fever, dyspnea, syncope, headache, dizziness, GI bleed, back pain, seizure, CVA, palpatations, mental health, musculoskeletal)? @ -Nausea, vomiting, diarrhea, dehydration, electrolyte abnormality, renal disease, viral illness, food toxicity, colitis, enteritis, gastroenteritis, gastritis, medication reaction, dysrhythmia, atrial fibrillation EKG interpreted by me (3pts min.). @ -As above X-rays interpreted by me (1pt min.). @ -None done CT interpreted by me (1pt min.). @ -None done U/S interpreted by me (1pt. min.). @ -None done What testing was considered but not performed or refused? (CT, X-rays, U/S, labs)? Why? @ -None What meds were considered but not given or refused? Why? @ -None Did you discuss the management of the patient with other professionals (professionals i.e. , PA, TRANSLATIONAL SPECIALIST, lab, RT, psych nurse, social media marketing specialist, insurance claims assistant, teacher, licensing officer, immigration case manager)? Give summary @ -No Was smoking cessation discussed for >3mins.? @ -No Was critical care preformed (if so, how long)? @ -No Were there social determinants of health that impacted care today? How? (Homelessness, low income, unemployed, alcoholism, drug addiction, transportation, low edu. Level, literacy, decrease access to med. care, snf, rehab)? @ -No Was there de-escalation of care discussed even if they declined (Discuss DNR or withdrawal of care, Hospice)? DNR status @ -No What co-morbidities impacted this encounter? (DM, HTN, Smoking, COPD, CAD, Cancer, CVA, ARF, Chemo, Hep., AIDS, mental health diagnosis, sleep apnea, morbid obesity)? @ -None Was patient admitted / discharged? Hospital course, mention meds given and route, prescriptions, significant lab abnormalities, going to OR and other pertinent info. @ -Patient reports improvement in his symptoms with IV fluid hydration and medications provided in the ED. Patient remains in rate controlled atrial fibrillation on the supervisory investigative specialist. Patient has a soft and nontender abdominal exam. Patient has not been able to provide a stool specimen while in the ED. Patient's labs are fairly unremarkable. I do not suspect an emergent medical co ndition at this time. Will discharge patient home at this time. Patient feels comfortable with this plan. Undiagnosed new problem with uncertain prognosis? @ -No Drug Therapy requiring intensive monitoring for toxicity (Heparin, Nitro, Insulin, Cardizem)? @ -No Were any procedures done? @ -No Diagnosis/symptom? @ -Nausea/vomiting/diarrhea Acute, or Chronic, or Acute on Chronic? @ -Acute Uncomplicated (without systemic symptoms) or Complicated (systemic symptoms)? @ -Default Side effects of treatment? @ -No Exacerbation, Progression, or Severe Exacerbation? @ -No Poses a threat to life or bodily function? How? (Chest pain, USA, MA, pneumonia, PE, COPD, DKA, ARF, appy, cholecystitis, CVA, Diverticulitis, Homicidal, Suicidal, threat to staff... and all critical care pts) @ -No Diagnosis/symptom? @ -Atrial fibrillation Acute, or Chronic, or Acute on Chronic? @ -Chronic Uncomplicated (without systemic symptoms) or Complicated (systemic symptoms)? @ -Default Side effects of treatment? @ -None Exacerbation, Progression, or Severe Exacerbation] @ -No Poses a threat to life or bodily function? @ -No (Denzel Wilson) - Lab Data Lab Results 02/29/24 02/29/24 02/29/24 Range/Units 15:56 16:55 16:55 WBC 6.8 (3.8-10.6) k/uL RBC 4.44 (4.30-5.90) m/uL Hgb 15.4 (13.0-17.5) gm/dL Hct 46.3 (39.0-53.0) % MCV 104.3 H (80.0-100.0) fL MCH 34.8 (25.0-35.0) pg MCHC 33.3 (31.0-37.0) g/dL RDW 13.1 (11.5-15.5) % Plt Count 200 (150-450) k/uL MPV 7.2 Neutrophils % 61 % Lymphocytes % 23 % Monocytes % 10 % Eosinophils % 1 % Basophils % 0 % Neutrophils # 4.1 (1.3-7.7) k/uL Lymphocytes # 1.6 (1.0-4.8) k/uL Monocytes # 0.7 (0-1.0) k/uL Eosinophils # 0.1 (0-0.7) k/uL Basophils # 0.0 (0-0.2) k/uL Macrocytosis Slight Sodium 133 L (137-145) mmol/L Potassium 3.8 (3.5-5.1) mmol/L Chloride 93 L (98-107) mmol/L Carbon Dioxide 22 (22-30) mmol/L Anion Gap 18 mmol/L BUN 22 H (9-20) mg/dL Creatinine 1.24 (0.66-1.25) mg/dL Est GFR (CKD-EPI)AfAm 65 (>60 ml/min/1.73 sqM) Est GFR (CKD-EPI)NonAf 57 (>60 ml/min/1.73 sqM) Glucose 119 H (74-99) mg/dL POC Glucose (mg/dL) 127 H (70-110) mg/dL POC Glu Vocational Technical Education Director ID Orlando Boles Calcium 9.5 (8.4-10.2) mg/dL Magnesium 1.9 (1.6-2.3) mg/dL Total Bilirubin 2.2 H (0.2-1.3) mg/dL AST 28 (17-59) U/L ALT 24 (4-49) U/L Alkaline Phosphatase 54 (38-126) U/L Total Protein 6.8 (6.3-8.2) g/dL Albumin 4.2 (3.5-5.0) g/dL - EKG Data EKG Comments: ED physician interpretation (interpreted by me): Atrial fibrillation with RVR, ventricular rate of 111 bpm, normal QRS duration, normal QT interval, normal axis, left anterior fascicular block, no definite ST or T wave abnormality (Denzel Wilson) Disposition <JhonathanDelmis - Last Filed: 02/29/24 16:11> Is patient prescribed a controlled substance at d/c from ED?: No Time of Disposition: 19:25 <KatieDenzel - Last Filed: 02/29/24 19:25> Clinical Impression: Vomiting and diarrhea, Atrial fibrillation Disposition: HOME SELF-CARE Condition: Stable Instructions (If sedation given, give patient instructions): Acute Nausea and Vomiting (ED), Acute Diarrhea (ED), A-fib (Atrial Fibrillation) (ED) Additional Instructions: Return to the ER immediately should you develop persistent vomiting/diarrhea, bloody vomiting/diarrhea, a fever, any significant pain, feeling dizzy or faint, shortness of breath, or new or worsening symptoms. Follow-up closely with your primary care provider. Referrals: Sparkle Savage DO [Primary Care Provider] - 1-2 days
[2024-02-29] MEDS: ONDANSETRON 4 MG/2 ML VIAL IVP STA (16:59)
[2024-02-29] MEDS: SODIUM CHLORIDE 0.9% 1,000 ML IV STA (17:00)
[2024-02-29 17:09] LABS: Basophils % (A) 0 %; Eosinophils # (A) 0.1 k/uL (0-0.7); Eosinophils % (A) 1 %; HCT 46.3 % (39.0-53.0); HGB 15.4 gm/dL (13.0-17.5); Lymphocytes # (A) 1.6 k/uL (1.0-4.8); Lymphocytes % (A) 23 %; MCH 34.8 pg (25.0-35.0); MCHC 33.3 g/dL (31.0-37.0); MCV 104.3 fL (80.0-100.0); Macrocytosis Slight; Mean Platelet Volume 7.2; Monocytes # (A) 0.7 k/uL (0-1.0); Monocytes % (A) 10 %; Neutrophils # (A) 4.1 k/uL (1.3-7.7); Neutrophils % (A) 61 %; Platelet Count 200 k/uL (150-450); RBC 4.44 m/uL (4.30-5.90); RDW 13.1 % (11.5-15.5); WBC 6.8 k/uL (3.8-10.6)
[2024-02-29] MEDS: LOPERAMIDE 2 MG CAP PO STA (17:11)
[2024-02-29 17:18] LABS: Potassium 3.8 mmol/L (3.5-5.1); Sodium 133 mmol/L (137-145)
[2024-02-29 17:19] LABS: ALT 24 U/L (4-49); AST 28 U/L (17-59); African American GFR (CKD) 65 (>60 ml/min/1.73 sqM); Albumin 4.2 g/dL (3.5-5.0); Alkaline Phosphatase 54 U/L (38-126); Anion Gap 18 mmol/L; Blood Urea Nitrogen 22 mg/dL (9-20); Calcium 9.5 mg/dL (8.4-10.2); Carbon Dioxide 22 mmol/L (22-30); Chloride 93 mmol/L (98-107); Glucose 119 mg/dL (74-99); Magnesium 1.9 mg/dL (1.6-2.3); Non-African American GFR(CKD) 57 (>60 ml/min/1.73 sqM); Total Bilirubin 2.2 mg/dL (0.2-1.3); Total Protein 6.8 g/dL (6.3-8.2)
[2024-02-29] MEDS: ONDANSETRON 4 MG ODT STARTER PACK 2 TAB BTL PO STA (19:30)
[2024-02-29 19:49] VITALS: BP 110/74; PULSE 53; RESP 18
== END 2024-02-29 19:49 | disposition home or self-care (01) ==
LOC: EC 15:48
CPT/HCPCS: 36415; 80053; 83735; 85025; 93005; 96361; 96374; 99284

== ENCOUNTER → 2024-03-30 | Outpatient (CLI) | payer MEDICARE ==
[2024-03-30 19:05] LABS: HCT 44.1 % (39.6-50.0); MCH 35.6 pg (27.0-32.0); MCV 104.8 FL (80.0-97.0); Mean Platelet Volume 9.3 FL (9.5-12.2); NRBC Per 100 WBC 0 X 10*3/uL (0.00-0.01); Platelet Count 204 X 10*3/uL (140-440); RBC 4.21 X 10*6/uL (4.40-5.60); RDW 13.5 % (11.5-14.5); WBC 7.81 X 10*3/uL (4.50-10.00)
[2024-03-30 19:18] LABS: Carbon Dioxide 21.6 mmol/L (21.6-31.8); Chloride 103 mmol/L (96-109); Potassium 4.6 mmol/L (3.5-5.5); Sodium 137 mmol/L (135-145)
== END | disposition home or self-care (01) ==
LOC: LABPAT 13:44
PROVIDERS: ATTEND Internal Medicine Clinical Cardiac Electrophysiology
DX: Z01.812 Encounter for preprocedural laboratory examination (principal); I48.19 Other persistent atrial fibrillation
CPT/HCPCS: 36415; 80051; 82565; 84520; 85027

== ENCOUNTER 2024-04-02 06:06 | Day surgery (SDC) | payer MEDICARE ==
[2024-04-02] MEDS: IV FLUID CONTINUATION 1,000 ML IV ONE (06:50)
[2024-04-02] MEDS: SODIUM CHLORIDE 0.9% 1,000 ML IV SCH (06:50)
[2024-04-02 06:55] LABS: Glucose,Whole Blood 83 mg/dL (70-110)
[2024-04-02 07:20] LABS: ALT 35 U/L (4-49); AST 29 U/L (17-59); African American GFR (CKD) 58 (>60 ml/min/1.73 sqM); Albumin 4.1 g/dL (3.5-5.0); Alkaline Phosphatase 50 U/L (38-126); Anion Gap 8 mmol/L; Blood Urea Nitrogen 20 mg/dL (9-20); Calcium 9.4 mg/dL (8.4-10.2); Carbon Dioxide 26 mmol/L (22-30); Chloride 107 mmol/L (98-107); Glucose 93 mg/dL (74-99); Non-African American GFR(CKD) 50 (>60 ml/min/1.73 sqM); Potassium 4.2 mmol/L (3.5-5.1); Sodium 141 mmol/L (137-145); Total Bilirubin 1.4 mg/dL (0.2-1.3); Total Protein 6.7 g/dL (6.3-8.2)
[2024-04-02] MEDS ORDERED: HEPARIN SODIUM,PORCINE 10,000 UNIT/ML 1 ML VIAL ONE (08:01)
[2024-04-02] MEDS ORDERED: SUCCINYLCHOLINE CHLORIDE 200 MG/10 ML VIAL IV ONE (08:01)
[2024-04-02] MEDS ORDERED: fentaNYL (PF) 50 MCG/ML 2 ML AMP ONE (08:01)
[2024-04-02] MEDS ORDERED: PROPOFOL 10 MG/ML 20 ML VIAL IV ONE (08:01)
[2024-04-02] MEDS ORDERED: ONDANSETRON 4 MG/2 ML VIAL ONE (08:01)
[2024-04-02] MEDS ORDERED: LIDOCAINE 1% INJ 10MG/ML (20 ML MDV) ONE (08:01)
[2024-04-02] MEDS ORDERED: PHENYLEPHRINE 10 MG/ML VIAL ONE (08:01)
[2024-04-02] MEDS: HEPARIN SOD,PORK IN 0.45% NACL 25,000 UNIT in 0.45% NACL 1 250ML.BAG IV ONE (08:24)
[2024-04-02] MEDS: HEPARIN SODIUM,PORCINE (1 ML) 2,500 UNIT in SODIUM CHLORIDE 0.9% 250 ML IRRIGATION ONE (08:24)
[2024-04-02] MEDS: HEPARIN SODIUM,PORCINE 10,000 UNIT in SODIUM CHLORIDE 0.9% 1,000 ML IRRIGATION ONE (08:24)
[2024-04-02] MEDS: LIDOCAINE 1% INJ 10MG/ML (20 ML MDV) SQ ONE (08:50)
[2024-04-02] MEDS: IOPAMIDOL-370 100ML BTL INJ ONE (10:47)
--- NOTE | 2024-04-02 11:29 | P.EPPROC ---
- EP Procedure Note Electrophysiology Procedure Note: This is Dr. Stephens dictating an H/P on this patient The patient was interviewed and examined IMPRESSION / ASSESSMENT: Persistent atrial fibrillation Shortness of breath despite adequate rate control Chronic diastolic heart failure Hypertension with left ventricle hypertrophy Recurrence of atrial fibrillation following successful cardioversion in January Type 2 diabetes Obstructive sleep apnea using the CPAP mask Nonobstructive CAD PLAN: A-fib ablation Continue Xarelto Continue other cardiac medications HPI Patient complains of shortness of breath on average exertion activities of daily living despite adequate rate control of atrial fibrillation and preserved LV systolic function and no significant obstructive disease by cardiac catheterization Blood pressure well-controlled Denies any fever chills cough expectoration Also complains of palpitations No syncope ROS: No fever chills or rigors, no cough, phlegm or expectoration, no nausea, vomiting or diarrhea, no hematuria, dysuria, no musculoskeletal complaints, no strokes or seizures, no skin lesions. EXAMINATION: Afebrile, pulse rate 69, respirations normal Blood pressure 135/72 mmHg 96% on room air No JVD No lower extremity edema Soft abdomen Lungs are clear on auscultation no rhonchi no crackles Heart sounds are irregular no murmurs transfer tech REVIEW OF LABS, ECG & MEDICAL DATA Sodium 141, potassium 4.2 BUN 20 and creatinine 1.37 AST and ALT are normal TSH is normal at 2.75
--- NOTE | 2024-04-02 11:34 | P.EPPROC ---
- EP Procedure Note Electrophysiology Procedure Note: PROCEDURE A. fib ablation with PVI, left atrial roof and left atrial septal ablation DIAGNOSIS Persistent atrial fibrillation, symptomatic, refractory to therapy RESULT No left atrial appendage mass seen on intracardiac echo, thickened pericardium especially posteriorly and behind the LA Successful A. fib ablation/pulmonary vein isolation of all veins using cryo- ablation, complex right-sided pulmonary venous anatomy and orientation Complete entrance block in all 4 veins confirmed Long left atrial roof, successful ablation, Linea Left atrial septal ablation, successful No evidence for phrenic nerve injury Esophageal deflection YES Electrical cardioversion with a synchronized shock across the chest YES PROCEDURE DETAILS Written informed consent prior to procedure. Patient brought to the EP lab. General anesthesia given. Heparin administered. A city maintained above 300 seconds Both groins prepped and draped per protocol and venous sheaths placed. Esophagus intubated, circa catheter for temperature monitoring an endoscope for possible esophageal deflection. Phrenic nerve monitoring performed. Esophageal temperature monitoring performed. Esophageal deflection performed if circa catheter overlapping with the balloon or circa temperature less than 27.5C Intracardiac echocardiography performed. Pericardium evaluated. Left atrial appendage evaluated. Left atrium evaluated along with pulmonary veins Transseptal catheterization performed under fluoroscopic guidance and intracardiac echo guidance Cryoablation sheath exchanged, balloon catheter along with achieve catheter placed in the left atrium. Pulmonary veins isolated in the following sequence: Left superior pulmonary vein followed by left inferior pulmonary vein, followed by right inferior pulmonary vein and lastly right superior pulmonary vein. Phrenic nerve stimulation along with capture thresholds within the SVC and right superior pulmonary vein to identify the phrenic nerve proximity to the cryo- balloon. Pulmonary veins isolated and confirmed with entrance and exit block. Phrenic nerve integrity confirmed at the end of the procedure Ablation of the left atrial roof performed with sequential lesions from the left superior to the right superior pulmonary veins. Ablation of the electrograms confirmed Ablation of the left atrial septum performed with cannulation of the superior branch of the right inferior and the inferior branch of the right superior vein to achieve ablation of the posterior septum of the left atrium. Ablation of electrograms confirmed. A very posteriorly oriented right inferior pulmonary vein Electrical cardioversion performed for persistence of atrial fibrillation despite successful ablation. Diagnostic catheters for the high right atrium, His bundle, coronary sinus placed. LA and RA pressures recorded RA pressure: 12/5/9 LA pressure: 17/3/10 Diagnostic EP study with coronary sinus pacing and recording Baseline measurements: HV interval 48 ms Sinus cycle length post cardioversion 1006 ms, MO interval 183 ms, QRS 95 ms and QT interval 489 ms Venous sheaths were removed and hemostasis assured with a closure device. Patient extubated and transferred to recovery Increase procedural time This took longer than usual on account of #1. A very large left atrium #2. A very long left atrial roof #3 a very complex right-sided pulmonary venous anatomy with a very large right superior pulmonary vein with 2 large tributaries, more anteriorly oriented while the large right inferior pulmonary vein was oriented very posteriorly PROCEDURES PERFORMED Diagnostic EP study CS pacing and recording Left and right transseptal catheterization Catheter the mapping of the tachycardia Intracardiac echocardiography Pulmonary vein isolation with transseptal and comprehensive EPS, [id number] Extended procedure duration Left atrial roof line, +[id number] Linear ablation, septum of left atrium, +[id number] Electrical cardioversion with a synchronized shock across the chest [id number]
--- NOTE | 2024-04-02 11:39 | P.PRLE ---
RE: Jim Ruiz Ghulam Dear Sparkle Mr. Jim Ruiz underwent successful A-fib ablation with pulmonary vein isolation, left atrial roof ablation and left atrial septal ablation. He was electrically cardioverted thereafter He does have a very enlarged left atrium with large pulmonary veins as well as thickened pericardium there was quite prominent on the posterior aspect of the left atrial wall He will continue anticoagulation and his cardiac medications unchanged Thank you for entrusting me with the care of the patient Warm regards Sincerely Tylor Stephens
[2024-04-02 12:17] LABS: Glucose,Whole Blood 97 mg/dL (70-110)
[2024-04-02] MEDS: ACETAMINOPHEN IV (For NPO) 1,000 MG in EMPTY BAG 1 BAG IVPB ONE (13:42)
[2024-04-02 17:30] LABS: Glucose,Whole Blood 73 mg/dL (70-110)
[2024-04-02] MEDS: ATORVASTATIN 40 MG TAB PO SCH (20:32)
[2024-04-02] MEDS: PARoxetine 20 MG TAB PO SCH (20:32)
[2024-04-02] MEDS: REPAGLINIDE 1 MG TAB PO SCH (20:32)
[2024-04-02 20:42] LABS: Glucose,Whole Blood 124 mg/dL (70-110)
[2024-04-03 02:37] VITALS: RESP 17
[2024-04-03 05:31] LABS: Glucose,Whole Blood 76 mg/dL (70-110)
[2024-04-03 07:39] VITALS: BP 140/85; PULSE 80; TEMP 98.3
[2024-04-03] MEDS: atenoloL 50 MG TAB PO SCH (08:07)
[2024-04-03] MEDS: ISOSORBIDE MONONITRATE ER 30 MG TAB.ER.24H PO SCH (08:07)
[2024-04-03] MEDS: ASPIRIN 81 MG PO SCH (08:07)
[2024-04-03] MEDS: LOSARTAN 25 MG TAB PO SCH (08:07)
[2024-04-03] MEDS: DAPAGLIFLOZIN PROPANEDIOL 10 MG TABLET PO SCH (08:07)
[2024-04-03] MEDS: FUROSEMIDE 40 MG TAB PO SCH (08:07)
[2024-04-03] MEDS: allopurinoL 300 MG TAB PO SCH (08:07)
[2024-04-03] MEDS: ACETAMINOPHEN TAB 325 MG TAB PO PRN (08:08)
[2024-04-03] MEDS: FINASTERIDE 5 MG TAB PO SCH (08:08)
--- NOTE | 2024-04-03 08:21 | P.DS ---
Providers Attending physician: Tylor Stephens Primary care physician: [facility] Course: Patient is doing well. No chest discomfort dizziness lightheadedness or palpitations Left groin no hematoma swelling or bruising Right groin bruising with a very small hematoma in relation to the muscle. This is soft and small There is no hematoma in relation to the puncture site This was present even yesterday after the procedure according to the nurse when he got up there No cardiac symptoms no breathing trouble Heart sounds are normal and regular Breath sounds are clear 12 EKG shows sinus mechanism with occasional PACs Blood pressure 144/76 mmHg afebrile Pulse rate in the 70s Clear lungs no rhonchi no crackles No lower extremity edema Impression Persistent symptomatic atrial fibrillation Significantly enlarged left atrium with complex right-sided pulmonary venous bo lazara and the long left atrial roof Thickened pericardium on intracardiac echo Very posteriorly oriented right inferior pulmonary vein, successfully ablated Successful PVI at the antral level, left atrial septal ablation, left atrial roof ablation Hypertension, type 2 diabetes Plan Continue all medications unchanged including beta-blockers and anticoagulation Patient instructed to avoid alcohol, nicotine, cannabis and [id number] omega-3 fatty acids/fish oil to reduce triggers and risks of atrial fibrillation Patient Condition at Discharge: Stable Plan - Discharge Summary Discharge Rx Participant: No New Discharge Prescriptions: Continue RX: Ergocalciferol [Vitamin D2 (DRISDOL)] 50,000 unit PO Q7D RX: Aspirin 81 mg PO DAILY RX: Losartan [Cozaar] 25 mg PO DAILY RX: Albuterol Sulfate [Proair Respiclick] 2 puff PO Q6H PRN PRN Reason: Shortness Of Breath RX: Finasteride [Proscar] 5 mg PO DAILY RX: allopurinoL 300 mg PO DAILY RX: Repaglinide 1 mg PO BID RX: Isosorbide Mononitrate ER [Imdur] 30 mg PO DAILY RX: Rivaroxaban [Xarelto] 20 mg PO QAM RX: Semaglutide [Ozempic] 1 mg SQ MO RX: Empagliflozin [Jardiance] 25 mg PO DAILY RX: Atorvastatin Calcium [Lipitor] 40 mg PO HS RX: PARoxetine HCL 20 mg PO HS RX: Furosemide [Lasix] 40 mg PO DAILY RX: atenoloL [Tenormin] 50 mg PO DAILY #90 tab Discharge Medication List RX: Albuterol Sulfate [Proair Respiclick] 2 puff PO Q6H PRN 02/25/15 [History] RX: Aspirin 81 mg PO DAILY 02/25/15 [History] RX: Ergocalciferol [Vitamin D2 (DRISDOL)] 50,000 unit PO Q7D 02/25/15 [History] RX: Losartan [Cozaar] 25 mg PO DAILY 02/25/15 [History] RX: Atorvastatin Calcium [Lipitor] 40 mg PO HS 01/24/23 [History] RX: Empagliflozin [Jardiance] 25 mg PO DAILY 01/24/23 [History] RX: Finasteride [Proscar] 5 mg PO DAILY 01/24/23 [History] RX: Isosorbide Mononitrate ER [Imdur] 30 mg PO DAILY 01/24/23 [History] RX: PARoxetine HCL 20 mg PO HS 01/24/23 [History] RX: Repaglinide 1 mg PO BID 01/24/23 [History] RX: allopurinoL 300 mg PO DAILY 01/24/23 [History] RX: Furosemide [Lasix] 40 mg PO DAILY 01/15/24 [History] RX: Rivaroxaban [Xarelto] 20 mg PO QAM 01/15/24 [History] RX: Semaglutide [Ozempic] 1 mg SQ MO 01/16/24 [History] RX: atenoloL [Tenormin] 50 mg PO DAILY #90 tab 01/16/24 [Rx]
[2024-04-03] MEDS ORDERED: RIVAROXABAN 15 MG TAB PO SCH (09:00)
== END 2024-04-03 10:55 | disposition home or self-care (01) ==
LOC: CATHEP 06:06 → 6NMEDSUR 10:40 → CATHEP 04-03 10:55
PROVIDERS: ATTEND Internal Medicine Clinical Cardiac Electrophysiology
CPT/HCPCS: 80053; 84443; 86850; 86900; 86901; 92960; 93656; 93657

== ENCOUNTER 2024-08-04 10:36 | Day surgery (SDC) | payer MEDICARE ==
--- NOTE | 2024-07-28 13:42 | P.HPIHPCON ---
History of Present Illness H&P Date: 07/28/24 Chief Complaint: Elevated PSA This is a 79-year-old male history of elevated PSA at 14. Prostate exam also demonstrated evidence of a prostate nodule. Discussed with him given this finding I do recommend proceeding with transrectal ultrasound of the prostate. Risk of bleeding, infection, sepsis was discussed with him in details. Of note given discomfort he wanted to have the biopsy done under sedation. Consent for Procedure: I have explained the operation/procedure to the patient, including the risks, benefits, side effects, alternative therapies (including not receiving the proposed treatment or service), the likelihood of the patient achieving his/her goals, and potential recuperation problems for the procedure/sedation/analgesia, as well as any blood products, if indicated. I also explained to the patient the risks, benefits and side effects of the alternatives, as well as the risks related to not receiving the proposed procedure, care, treatment, or services. Past Medical History Past Medical History: Atrial Fibrillation, Chest Pain / Angina, COPD, Diabetes Mellitus, Hearing Disorder / Deafness, Hyperlipidemia, Hypertension, Osteoarthritis (OA), Sleep Apnea/CPAP/BIPAP Additional Past Medical History / Comment(s): SEE DR CARVAJAL'S H&P. SOB, HARD OF HEARING, USES CPAP. History of Any Multi-Drug Resistant Organisms: None Reported Past Surgical History: Cholecystectomy Additional Past Surgical History / Comment(s): CARDIOVERSION X2, LOOP RECORDER LT CHEST, LATER REMOVED, BILATERAL CATARACT Past Anesthesia/Blood Transfusion Reactions: No Reported Reaction Smoking Status: Former smoker - Past Family History Daughter(s) Family Medical History: Cancer Additional Family Medical History / Comment(s): Thyroid cancer. Father Additional Family Medical History / Comment(s): BLOOD CLOT IN THE HEART. Mother Family Medical History: CVA/TIA Medications and Allergies Home Medications Medication Instructions Recorded Confirmed Type Albuterol Sulfate [Proair 2 puff PO Q6H PRN 02/25/15 04/02/24 History Respiclick] Aspirin 81 mg PO DAILY 02/25/15 04/02/24 History Ergocalciferol [Vitamin D2 50,000 unit PO Q7D 02/25/15 04/02/24 History (DRISDOL)] Losartan [Cozaar] 25 mg PO DAILY 02/25/15 04/02/24 History Atorvastatin Calcium [Lipitor] 40 mg PO HS 01/24/23 04/02/24 History Empagliflozin [Jardiance] 25 mg PO DAILY 01/24/23 04/02/24 History Finasteride [Proscar] 5 mg PO DAILY 01/24/23 04/02/24 History Isosorbide Mononitrate ER [Imdur] 30 mg PO DAILY 01/24/23 04/02/24 History PARoxetine HCL 20 mg PO HS 01/24/23 04/02/24 History Repaglinide 1 mg PO BID 01/24/23 04/02/24 History allopurinoL 300 mg PO DAILY 01/24/23 04/02/24 History Furosemide [Lasix] 40 mg PO DAILY 01/15/24 04/02/24 History Rivaroxaban [Xarelto] 20 mg PO QAM 01/15/24 04/02/24 History Semaglutide [Ozempic] 1 mg SQ MO 01/16/24 04/02/24 History atenoloL [Tenormin] 50 mg PO DAILY #90 tab 01/16/24 04/02/24 Rx Allergies Allergy/AdvReac Type Severity Reaction Status Date / Time No Known Allergies Allergy Verified 04/02/24 06:40 Surgical - Exam - General no distress, no pain - Eyes normal ocular movement, no pale - ENT normal nares, normal mucosa - Respiratory normal expansion, normal respiratory effort Assessment and Plan Assessment: OR for transrectal biopsy of the prostate under sedation
[~2024-08-04 10:36] MED LIST changes: -ALPRAZolam 0.25 MG TAB PO PRN; -ALPRAZolam 0.5 MG TAB PO PRN; -ASPIRIN 325 MG TAB PO STA; +LIDOCAINE 1% (10MG/ML) FOR IV START INTRADERMA PRN; -NITROGLYCERIN SL TABS 0.4 MG TAB SUBLINGUAL PRN; -SODIUM CHLORIDE 0.9% 1,000 ML in EMPTY BAG 1 BAG IV SCH
[2024-08-04] MEDS: IV FLUID CONTINUATION 1,000 ML IV ONE (11:35)
[2024-08-04 11:40] VITALS: TEMP 97.4
[2024-08-04] MEDS: LACTATED RINGERS 1,000 ML IV SCH (11:41)
[2024-08-04 11:44] LABS: Glucose,Whole Blood 111 mg/dL (70-110)
[2024-08-04] MEDS: GENTAMICIN 40 MG/ML 2 ML VIAL IM PRN (11:51)
[2024-08-04] MEDS ORDERED: PROPOFOL 10 MG/ML 20 ML VIAL IV ONE (12:48)
[2024-08-04] MEDS ORDERED: LIDOCAINE 1% INJ 10MG/ML (20 ML MDV) ONE (12:48)
--- NOTE | 2024-08-04 13:14 | P.OP ---
Date of Procedure: 08/04/24 Preoperative Diagnosis: Elevated PSA level, prostate nodule Postoperative Diagnosis: Same Procedure(s) Performed: Transrectal ultrasound-guided biopsies of the prostate Anesthesia: MAC Surgeon: Gil Fulton Estimated Blood Loss (ml): 5 IV fluids (ml): 200 Pathology: other (Prostate biopsies) Condition: stable Disposition: PACU Indications for Procedure: This is a 79-year-old male with an elevated PSA level of 11.08. Digital rectal examination reveals a left-sided prostate nodule, and he now comes for biopsies. Operative Findings: Large left-sided prostate nodule with extracapsular extension. Description of Procedure: The patient was taken to the operating room and placed in the left lateral decubitus position. SUE revealed a large left-sided nodule which occupies the majority of the left lateral lobe. The [employer] transrectal ultrasound probe was placed intrarectally. The prostate was imaged in both the axial and sagittal planes, revealing a prostate volume of 48.94 mL. The prostate was imaged in both the axial and sagittal planes. The seminal vesicles appeared normal. No lesions were seen within the right peripheral zone. However, a left sided hypoechoic lesion was seen which measured 2 cm in maximal diameter. There was distortion of the prostatic capsule, suggestive of extracapsular extension. Using a standard template, 6 biopsies were obtained of the right peripheral zone. On the left side, only the laterally directed biopsies were performed, 3 in total. Once the procedure was completed, the ultrasound probe was removed. The patient tolerated the procedure well was taken to the recovery room stable condition.
[2024-08-04 13:49] VITALS: BP 123/87; PULSE 93; RESP 16
== END 2024-08-04 14:14 | disposition home or self-care (01) ==
LOC: OR 10:36
PROVIDERS: ATTEND Urology
DX: C61 Malignant neoplasm of prostate (principal); E11.9 Type 2 diabetes mellitus without complications; E78.5 Hyperlipidemia, unspecified; I10 Essential (primary) hypertension; I48.91 Unspecified atrial fibrillation; J44.9 Chronic obstructive pulmonary disease, unspecified; M19.90 Unspecified osteoarthritis, unspecified site; N40.2 Nodular prostate without lower urinary tract symptoms; G47.33 Obstructive sleep apnea (adult) (pediatric); F41.9 Anxiety disorder, unspecified; F32.A Depression, unspecified; Z79.84 Long term (current) use of oral hypoglycemic drugs; Z87.891 Personal history of nicotine dependence; Z90.49 Acquired absence of other specified parts of digestive tract; Z91.198 Patient's noncompliance with other medical treatment and regimen for other reason; Z79.899 Other long term (current) drug therapy; Z79.01 Long term (current) use of anticoagulants
CPT/HCPCS: 55700; 88305; J1580; J2003; J2704

== ENCOUNTER → 2024-09-11 | Outpatient (CLI) | payer MEDICARE ==
--- NOTE | 2024-09-12 08:44 | PE ---
EXAMINATION TYPE: PET CT fusion skull to thigh DATE OF EXAM: 09/11/2024 CLINICAL INDICATION:Male, 79 years old with history of C61 prostate ca; TECHNIQUE: Following the intravenous administration of 6.56 mCi of Ga-68 Illuccix (PSMA), whole bod y images are performed from the skull base to the Mid thigh. Images are reviewed on the computer in the coronal, axial, and sagittal planes. Reconstructed rotating images are created on independent MIGS[employer] rkstation and reviewed on the computer. A non-contrast CT is performed in conjunction with the PET scan. CT DLP: 911 mGycm, Automated exposure control for dose reduction was used. COMPARISON: CT 09/25/2022, PET/CT None, MRI: None FINDINGS: Mediastinal SUV mean is 1.6. Hepatic parenchyma SUV mean is 4.58. SKULL BASE AND NECK: No suspicious radiotracer activity. CHEST, MEDIASTINUM, AND HILAR REGION: No suspicious radiotracer activity. ABDOMEN AND PELVIS: Suspicious uptake identified examples include: Left external iliac max SUV 12.9 Diffuse uptake in the prostate gland most pronounced in the left anterior and left lateral aspects ma x SUV 20.7, on the right apex max SUV 24.5. MUSCULOSKELETAL STRUCTURES: Suspicious uptake identified examples include: Left sacrum max SUV 9.[address]: Bilaterally aphakia. Right axilla metallic density possibly retained foreign body. Lateral gynecomastia changes. Moderate coronary artery atherosclerosis. Mild cardiomegaly. The gallbladder gonzalez rgically absent. Obstructing 2 mm left renal calculus. Fat-containing left inguinal hernia extending down the scrotum. The right testis is in the right inguinal canal. The right submandibular gland is n ot definitively visualized may be surgically absent. IMPRESSION: Intense uptake within the prostate gland (right with at least one left external iliac lymph node and 1 focus of uptake within the sacrum concerning for metastatic disease. [facility], , 09/12/2024 8:42 AM
== END | disposition home or self-care (01) ==
LOC: RADPETMAIN 10:46
PROVIDERS: ATTEND Urology
DX: C61 Malignant neoplasm of prostate (principal)
CPT/HCPCS: 78815; A9596

== ENCOUNTER 2024-09-15 06:46 | Day surgery (SDC) | payer MEDICARE ==
[2024-09-11 09:10] VITALS: BMI 39.1
[2024-09-15] MEDS: IV FLUID CONTINUATION 1,000 ML IV ONE (07:04)
[2024-09-15 07:13] VITALS: TEMP 97.6
[2024-09-15] MEDS: LACTATED RINGERS 1,000 ML IV SCH (07:25)
[2024-09-15 07:33] LABS: Glucose,Whole Blood 118 mg/dL (70-110)
[2024-09-15] MEDS: ONDANSETRON 4 MG/2 ML VIAL IVP STA (07:40)
[2024-09-15] MEDS ORDERED: PROPOFOL 10 MG/ML 20 ML VIAL IV ONE (08:08)
--- NOTE | 2024-09-15 08:12 | P.GSHP ---
History of Present Illness H&P Date: 09/15/24 Chief Complaint: Reflux, nausea vomiting, screening 79-year-old male here for upper and lower endoscopy. Patient with daily nausea and vomiting recently. Often bilious in color. Also has reflux. Thinks he is due for a screening colonoscopy. No bowel complaints. Recent diagnosis of prostate cancer possibly metastatic to the skeletal structure. Past Medical History Past Medical History: Atrial Fibrillation, Cancer, Chest Pain / Angina, COPD, Diabetes Mellitus, Hearing Disorder / Deafness, Hyperlipidemia, Hypertension, Osteoarthritis (OA), Sleep Apnea/CPAP/BIPAP Additional Past Medical History / Comment(s): SEE DR CARVAJAL'S H&P. SOB, HARD OF HEARING, Does not use CPAP-his broke. Recent dx prostate ca History of Any Multi-Drug Resistant Organisms: None Reported Past Surgical History: Cholecystectomy Additional Past Surgical History / Comment(s): CARDIOVERSION X2, LOOP RECORDER LT CHEST, LATER REMOVED, BILATERAL CATARACT, prior colonscopies Past Anesthesia/Blood Transfusion Reactions: No Reported Reaction Smoking Status: Former smoker - Past Family History Daughter(s) Family Medical History: Cancer Additional Family Medical History / Comment(s): Thyroid cancer. Father Additional Family Medical History / Comment(s): BLOOD CLOT IN THE HEART. Mother Family Medical History: CVA/TIA Medications and Allergies Home Medications Medication Instructions Recorded Confirmed Type Albuterol Sulfate [Proair 2 puff PO Q6H PRN 02/25/15 09/15/24 History Respiclick] Aspirin 81 mg PO DAILY 02/25/15 09/15/24 History Ergocalciferol [Vitamin D2 50,000 unit PO Q7D 02/25/15 09/15/24 History (JAYDE)] Losartan [Cozaar] 25 mg PO DAILY 02/25/15 09/15/24 History Atorvastatin Calcium [Lipitor] 80 mg PO HS 01/24/23 09/15/24 History Empagliflozin [Jardiance] 25 mg PO DAILY 01/24/23 09/15/24 History Finasteride [Proscar] 5 mg PO DAILY 01/24/23 09/15/24 History Isosorbide Mononitrate ER [Imdur] 30 mg PO DAILY 01/24/23 09/15/24 History PARoxetine HCL 20 mg PO HS 01/24/23 09/15/24 History Repaglinide 1 mg PO BID 01/24/23 09/15/24 History allopurinoL 300 mg PO DAILY 01/24/23 09/15/24 History Furosemide [Lasix] 40 mg PO DAILY 01/15/24 09/15/24 History Rivaroxaban [Xarelto] 20 mg PO QAM 01/15/24 09/15/24 History Semaglutide [Ozempic] 1 mg SQ MO 01/16/24 09/15/24 History atenoloL [Tenormin] 50 mg PO BID 07/31/24 09/15/24 History buPROPion [Wellbutrin] 150 mg PO DAILY 09/11/24 09/15/24 History modafiniL [Provigil] 100 mg PO HS 09/11/24 09/15/24 History Allergies Allergy/AdvReac Type Severity Reaction Status Date / Time No Known Allergies Allergy Verified 09/15/24 07:07 Surgical - Exam Vital Signs Temp Pulse Resp BP Pulse Ox 97.6 F 91 18 167/98 96 09/15/24 07:10 09/15/24 07:10 09/15/24 07:10 09/15/24 07:10 09/15/24 07:10 Physical exam: General: Well-developed, well-nourished HEENT: Normocephalic, sclerae nonicteric Abdomen: Nontender, nondistended Extremities: No edema Neuro: Alert and oriented Results - Labs Abnormal Lab Results - Last 24 Hours (Table) 09/15/24 Range/Units 07:22 POC Glucose (mg/dL) 118 H (70-110) mg/dL Assessment and Plan (1) Colon cancer screening Narrative/Plan: Will proceed with colonoscopy at this time. Current Visit: Yes Status: Acute Code(s): Z12.11 - ENCOUNTER FOR SCREENING FOR MALIGNANT NEOPLASM OF COLON SNOMED Code(s): 852668281
--- NOTE | 2024-09-15 08:36 | P.PCN ---
Date of Procedure: 09/15/24 Procedure(s) Performed: PREOPERATIVE DIAGNOSIS: GERD, intractable nausea, screening POSTOPERATIVE DIAGNOSIS: Diffuse gastritis, small hiatal hernia, mild diverticulosis PROCEDURE: 1. EGD with biopsy 2. Colonoscopy ANESTHESIA: MAC SURGEON: Mk Amador M.D. SPECIMENS: Antrum ENDOSCOPIC PROCEDURE: The patient was on the endoscopy table in the left decubitus position. The Olympus gastroscope was inserted into the oropharynx and passed under direct visualization to the region of the third portion of the duodenum. From that point the scope was slowly withdrawn inspecting all surfaces carefully. There were no neoplastic inflammatory or polypoid lesions throughout the duodenum. The pylorus was widely patent. The stomach was carefully inspected. There was diffuse gastritis present without erosions or ulcerations. A biopsy of the antrum took place to rule out H. pylori. Retroflexion revealed a small hiatal hernia. The esophagus was then carefully examined. There were no neoplastic inflammatory or polypoid lesions throughout the visualized esophagus. The patient was kept on the endoscopy table in the left decubitus position. The Olympus colonoscope was inserted into the anus and passed under direct visualization to the base of the cecum. The appendiceal orifice was visualized. From that point the scope was slowly withdrawn inspecting all surfaces carefully. There were no neoplastic inflammatory or polypoid lesions throughout the cecum, ascending, transverse, descending, sigmoid and rectum. There was mild left-sided diverticulosis noted. Digital rectal examination was normal. The patient was taken to the recovery room in stable condition per anesthesia guidelines. RECOMMENDATIONS: Antiacid therapy. Await biopsy results. No further colonoscopy needed at this point.
[2024-09-15 08:47] VITALS: RESP 16
[2024-09-15 09:21] VITALS: BP 122/74; PULSE 71
== END 2024-09-15 09:27 | disposition home or self-care (01) ==
LOC: ORWHC2ENDO 06:46
PROVIDERS: ATTEND Surgery
DX: Z12.11 Encounter for screening for malignant neoplasm of colon (principal); K29.50 Unspecified chronic gastritis without bleeding; K44.9 Diaphragmatic hernia without obstruction or gangrene; K57.30 Diverticulosis of large intestine without perforation or abscess without bleeding; K21.9 Gastro-esophageal reflux disease without esophagitis; C61 Malignant neoplasm of prostate; J44.9 Chronic obstructive pulmonary disease, unspecified; I48.91 Unspecified atrial fibrillation; I10 Essential (primary) hypertension; E11.9 Type 2 diabetes mellitus without complications; E78.5 Hyperlipidemia, unspecified; F41.9 Anxiety disorder, unspecified; F32.A Depression, unspecified; G47.33 Obstructive sleep apnea (adult) (pediatric); M19.90 Unspecified osteoarthritis, unspecified site; Z99.89 Dependence on other enabling machines and devices; Z87.891 Personal history of nicotine dependence; Z82.3 Family history of stroke; Z79.84 Long term (current) use of oral hypoglycemic drugs; Z79.51 Long term (current) use of inhaled steroids; Z79.02 Long term (current) use of antithrombotics/antiplatelets; Z79.82 Long term (current) use of aspirin; Z79.899 Other long term (current) drug therapy
CPT/HCPCS: 43239; J2405; J2704; G0121; 88305

== ENCOUNTER → 2024-10-20 | Outpatient (CLI) | payer MEDICARE ==
[2024-10-20 19:48] LABS: BUN/Creat Ratio 17.14 Ratio (12.00-20.00); Calcium 9.9 mg/dL (8.7-10.3); Carbon Dioxide 23.3 mmol/L (21.6-31.8); Chloride 101 mmol/L (96-109); Glucose 107 mg/dL (70-110); Potassium 4.7 mmol/L (3.5-5.5); Sodium 141 mmol/L (135-145)
[2024-10-20 21:01] LABS: Basophils # (A) 0.02 X 10*3/uL (0.00-0.10); Basophils % (A) 0.2 %; Eosinophils # (A) 0.07 X 10*3/uL (0.04-0.35); Eosinophils % (A) 0.8 %; HCT 48.5 % (39.6-50.0); HGB 16.7 g/dL (13.0-17.0); Lymphocytes # (A) 3.24 X 10*3/uL (0.90-5.00); MCH 34.9 pg (27.0-32.0); MCHC 34.4 g/dL (32.0-37.0); MCV 101.3 FL (80.0-97.0); Monocytes # (A) 1.01 X 10*3/uL (0.20-1.00); Monocytes % (A) 11.2 %; NRBC Per 100 WBC 0 X 10*3/uL (0.00-0.01); Neutrophils # (A) 4.63 X 10*3/uL (1.80-7.70); Neutrophils % (A) 51.5 %; Platelet Count 219 X 10*3/uL (140-440); RBC 4.79 X 10*6/uL (4.40-5.60); RDW 14.4 % (11.5-14.5)
== END | disposition home or self-care (01) ==
LOC: LABPAT 15:28
PROVIDERS: ATTEND Urology
DX: Z01.812 Encounter for preprocedural laboratory examination (principal); C61 Malignant neoplasm of prostate
CPT/HCPCS: 80048; 85025

== ENCOUNTER 2024-11-03 12:49 | Day surgery (SDC) | payer MEDICARE ==
--- NOTE | 2024-11-03 12:17 | P.HPIHPCON ---
History of Present Illness H&P Date: 11/03/24 Chief Complaint: Prostate cancer This is a 79-year-old male with history of [place] 8 prostate cancer. Plan to proceed with radiation therapy. Option of a SpaceOAR gel placement was discussed with him. He is aware of the risk which include but not limited to bleeding, infection, potential of still developing rectal toxicity from radiation even with a SpaceOAR placement. He understood all the risk and agreed to proceed Consent for Procedure: I have explained the operation/procedure to the patient, including the risks, benefits, side effects, alternative therapies (including not receiving the proposed treatment or service), the likelihood of the patient achieving his/her goals, and potential recuperation problems for the procedure/sedation/analgesia, as well as any blood products, if indicated. I also explained to the patient the risks, benefits and side effects of the alternatives, as well as the risks related to not receiving the proposed procedure, care, treatment, or services. Past Medical History Past Medical History: Atrial Fibrillation, Cancer, Chest Pain / Angina, COPD, Diabetes Mellitus, GERD/Reflux, Hearing Disorder / Deafness, Hyperlipidemia, Hypertension, Osteoarthritis (OA), Prostate Disorder, Sleep Apnea/CPAP/BIPAP Additional Past Medical History / Comment(s): SOB w/exertion, no recent CP, USES CPAP. recent dx. prostate cancer, urinary difficulty History of Any Multi-Drug Resistant Organisms: None Reported Past Surgical History: Cardiac Ablation, Cholecystectomy Additional Past Surgical History / Comment(s): CARDIOVERSION X2, LOOP RECORDER LT CHEST, LATER REMOVED, BILATERAL CATARACT Past Anesthesia/Blood Transfusion Reactions: No Reported Reaction Smoking Status: Former smoker - Past Family History Daughter(s) Family Medical History: Cancer Additional Family Medical History / Comment(s): Thyroid cancer. Father Additional Family Medical History / Comment(s): BLOOD CLOT IN THE HEART. Mother Family Medical History: CVA/TIA Medications and Allergies Home Medications Medication Instructions Recorded Confirmed Type Aspirin 81 mg PO DAILY 02/25/15 11/02/24 History Ergocalciferol [Vitamin D2 50,000 unit PO Q7D 02/25/15 11/02/24 History (DRISDOL)] Losartan [Cozaar] 25 mg PO DAILY 02/25/15 11/02/24 History Atorvastatin Calcium [Lipitor] 80 mg PO HS 01/24/23 11/02/24 History Empagliflozin [Jardiance] 10 mg PO DAILY 01/24/23 11/02/24 History PARoxetine HCL 40 mg PO HS 01/24/23 11/02/24 History Repaglinide 1 mg PO BID 01/24/23 11/02/24 History allopurinoL 300 mg PO DAILY 01/24/23 11/02/24 History Furosemide [Lasix] 40 mg PO DAILY 01/15/24 11/02/24 History Rivaroxaban [Xarelto] 20 mg PO QAM 01/15/24 11/02/24 History Semaglutide [Ozempic] 1 mg SQ MO 01/16/24 11/02/24 History atenoloL [Tenormin] 50 mg PO BID 07/31/24 11/02/24 History buPROPion [Wellbutrin] 150 mg PO DAILY 09/11/24 11/02/24 History Omeprazole [PriLOSEC] 20 mg PO AC-BRKFST #90 cap 09/15/24 11/02/24 Rx Famotidine [Pepcid] 40 mg PO DAILY 11/02/24 11/02/24 History Fluticasone/Umeclidin/Vilanter 1 inhalation INHALATION DAILY PRN 11/02/24 11/02/24 History [Trelegy Ellipta 100-62.5-25] Multivitamins, Thera [Multivitamin 1 tab PO DAILY 11/02/24 11/02/24 History (formulary)] Allergies Allergy/AdvReac Type Severity Reaction Status Date / Time No Known Allergies Allergy Verified 11/02/24 08:58 Surgical - Exam - General no distress, no pain - Eyes normal ocular movement, no pale - Respiratory normal expansion, normal respiratory effort - Abdomen Abdomen: soft, non tender Assessment and Plan Assessment: OR for SpaceOAR gel placement
[~2024-11-03 12:49] MED LIST changes: +LACTATED RINGERS 1,000 ML IV SCH; +fentaNYL (PF) 50 MCG/ML 2 ML AMP IV PRN
[2024-11-03 14:26] VITALS: TEMP 96.8
[2024-11-03 14:32] LABS: Glucose,Whole Blood 96 mg/dL (70-110)
[2024-11-03] MEDS: IV FLUID CONTINUATION 1,000 ML IV ONE (14:32)
[2024-11-03] MEDS: ONDANSETRON 4 MG/2 ML VIAL IVP PRN (14:40)
[2024-11-03] MEDS ORDERED: PHENYLEPHRINE-0.9% NACL SYG 1,000 MCG/10 ML SYRINGE ONE (15:10)
[2024-11-03] MEDS ORDERED: MIDAZOLAM 2 MG/2 ML VIAL ONE (15:10)
[2024-11-03] MEDS ORDERED: LIDOCAINE 1% INJ 10MG/ML (20 ML MDV) ONE (15:10)
[2024-11-03] MEDS ORDERED: fentaNYL (PF) 50 MCG/ML 2 ML AMP ONE (15:10)
[2024-11-03] MEDS ORDERED: PROPOFOL 10 MG/ML 20 ML VIAL IV ONE (15:10)
[2024-11-03] MEDS: ceFAZolin 2 GM in DEXTROSE 5% IN WATER 50 ML IVPB PRN (15:15)
[2024-11-03] MEDS: LIDOCAINE 2% INJ 20 MG/ML SQ ONE ×2 (15:21)
--- NOTE | 2024-11-03 15:42 | P.OP ---
Date of Procedure: 11/03/24 Preoperative Diagnosis: prostate cancer Postoperative Diagnosis: same Procedure(s) Performed: SpaceOR gel placement Anesthesia: MAC Surgeon: Guy Fermin Estimated Blood Loss (ml): 1 Pathology: none sent Condition: stable Disposition: PACU Indications for Procedure: This is a 79-year-old male with history of [place] 8 prostate cancer. Plan to proceed with radiation therapy. Option of a SpaceOAR gel placement was discussed with him. He is aware of the risk which include but not limited to bleeding, infection, potential of still developing rectal toxicity from radiation even with a SpaceOAR placement. He understood all the risk and agreed to proceed Description of Procedure: The patient was taken to the operating room and placed in the dorsolithotomy position, with his legs supported in Francisco Javier stirrups. The external genitalia was prepped and draped sterilely. The transrectal ultrasound probe was placed intrarectally. The prostate was imaged. The probe was then placed within the stabilizing stand. A spinal needle was advanced under ultrasonic guidance to the level of the urogenital diaphragm, and lidocaine was used to infiltrate the tissues as the needle was withdrawn. Next, the SpaceOAR needle was passed through the midline of the perineum, 1-2 cm anterior to the anal opening. The needle was slowly advanced under ultrasonic guidance until the needle tip was located within the fat plane between the prostate and rectum, at the level of the mid prostate gland. The needle was confirmed to be midline on the axial imaging. A small amount of normal saline was injected for hydrodissection. Next, the SpaceOAR components were mixed and loaded into the Y connector per protocol. The Y connector was then connected to the needle, and the components were injected slowly over a course of approximately 10 seconds. A total of 10 ml was injected. Significant distance was created between the prostate and rectum, as desired. It should be noted that at no point was there any concern of rectal perforation. The needle was withdrawn, as well as the transrectal ultrasound probe, and the procedure was terminated. The patient tolerated the procedure well and was taken to the recovery room in stable condition
[2024-11-03 16:16] VITALS: BP 114/88; PULSE 86; RESP 16
== END 2024-11-03 16:26 | disposition home or self-care (01) ==
LOC: OR 12:49
PROVIDERS: ATTEND Urology
DX: C61 Malignant neoplasm of prostate (principal); I48.91 Unspecified atrial fibrillation; I10 Essential (primary) hypertension; I25.10 Atherosclerotic heart disease of native coronary artery without angina pectoris; E11.9 Type 2 diabetes mellitus without complications; E78.5 Hyperlipidemia, unspecified; G47.33 Obstructive sleep apnea (adult) (pediatric); J44.9 Chronic obstructive pulmonary disease, unspecified; K21.9 Gastro-esophageal reflux disease without esophagitis; Z79.01 Long term (current) use of anticoagulants; Z79.82 Long term (current) use of aspirin; Z79.85 Long-term (current) use of injectable non-insulin antidiabetic drugs; Z79.84 Long term (current) use of oral hypoglycemic drugs; Z79.51 Long term (current) use of inhaled steroids; Z79.899 Other long term (current) drug therapy; Z87.891 Personal history of nicotine dependence
CPT/HCPCS: 55874; C1889; J2250; J0690; J2405; J2003 ×2; J3010; J2704; J2371

== ENCOUNTER → 2024-11-25 | Outpatient (CLI) | payer MEDICARE ==
[2024-11-25 15:03] VITALS: BP 118/73; PULSE 74; RESP 16; TEMP 97.7
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
== END ==
LOC: 3 N SLEEP 14:06
PROVIDERS: ATTEND Internal Medicine
DX: G47.33 Obstructive sleep apnea (adult) (pediatric) (principal); I48.91 Unspecified atrial fibrillation; I10 Essential (primary) hypertension; K21.9 Gastro-esophageal reflux disease without esophagitis; E78.5 Hyperlipidemia, unspecified; M10.9 Gout, unspecified; E11.9 Type 2 diabetes mellitus without complications; Z90.49 Acquired absence of other specified parts of digestive tract; Z85.46 Personal history of malignant neoplasm of prostate; Z87.891 Personal history of nicotine dependence; Z98.890 Other specified postprocedural states
CPT/HCPCS: 99211

== ENCOUNTER 2024-12-26 19:45 | Outpatient (CLI) | payer MEDICARE ==
--- NOTE | 2025-01-06 13:35 | P.PCN ---
Description of Procedure: POLYSOMNOGRAPHY REPORT PROCEDURE(S)/DATE(S): Polysomnography 12/26/2024 CLINICAL: Patient has been seen in the sleep center for evaluation of obstructive sleep apnea-hypopnea syndrome. Please see my consultation. Sleep study has been done for evaluation of patient breathing during the sleep. PROCEDURE: The standard montage for clinical polysomnography included the electroencephalogram, the electrooculogram, the mentalis surface electromyography and Lead II cardiography. The respiratory battery consisted of measurements of nasal/buccal air flow, pressure transducer measurements from nose, thoracic and/or abdominal effort and intercostal surface electromyography. Video monitoring has been done to check for any parasomnia events. Nocturnal oxyhemoglobin saturations were obtained by finger oximetry. Step-thornton titration with positive airway pressure was utilized to control the respiratory events, if necessary. RESULTS: During the diagnostic sleep study sleep efficiency was significantly decreased to 58.5%. Latency to sleep onset was extremely long 112.0 min. Sleep architecture showed stage NI was prolonged to 14.4%, Delta sleep was absent 0%, REM sleep was short 9.4%. Respiratory channel showed 0 obstructive apneas, 0 mixed apneas, 0 central apneas, 149 hypopneas with lowest oxygen level 80%. Total apnea hypopnea index was 37.3. Heart rate was in the range between 76 and 104, average 91. EMG showed 59.8 periodic limb movements per hour with 0.5 micro-arousals per hour. IMPRESSIONS: 1. Severe obstructive sleep apnea hypopnea syndrome. 2. Severe periodic limb movements have been documented. Please see other impressions from consultation PLAN: 1. The patient will have PAP titration for correction of respiratory abnormalities during the sleep. 2. Losing weight program. 3. Sleep hygiene with regular time in bed for at least 7-1/2 hours. 4. No driving if feeling sleepiness. 5. Please check iron profile including ferritin level. Low level of iron may increase the risk for periodic limb movements. Thank you very much for allowing me to participate in the management of your patient. Sincerely, Juan Rojas MD, PhD, FAASM. Diplomat of [place] [employer], Sleep Medicine Board by [place] [employer] [facility] [place] cc: Sparkle Savage DO
== END 2024-12-27 06:00 | disposition home or self-care (01) ==
LOC: 3 N SLEEP 19:45
PROVIDERS: ATTEND Internal Medicine
DX: G47.33 Obstructive sleep apnea (adult) (pediatric) (principal); G47.61 Periodic limb movement disorder; Z87.891 Personal history of nicotine dependence
CPT/HCPCS: 95810

== ENCOUNTER → 2025-01-11 | Outpatient (CLI) | payer MEDICARE ==
[2025-01-11 19:59] LABS: Basophils # (A) 0.01 X 10*3/uL (0.00-0.10); Basophils % (A) 0.2 %; Eosinophils # (A) 0.09 X 10*3/uL (0.04-0.35); Eosinophils % (A) 2.2 %; HCT 39.3 % (39.6-50.0); HGB 13.5 g/dL (13.0-17.0); Immature Grans, Automated 0.20 %; Lymphocytes # (A) 0.61 X 10*3/uL (0.90-5.00); Lymphocytes % (A) 15.2 %; MCH 35.8 pg (27.0-32.0); MCHC 34.4 g/dL (32.0-37.0); MCV 104.2 FL (80.0-97.0); Monocytes # (A) 0.57 X 10*3/uL (0.20-1.00); Monocytes % (A) 14.2 %; NRBC Per 100 WBC 0 X 10*3/uL (0.00-0.01); Neutrophils # (A) 2.72 X 10*3/uL (1.80-7.70); Neutrophils % (A) 68.0 %; Platelet Count 178 X 10*3/uL (140-440); RBC 3.77 X 10*6/uL (4.40-5.60); RDW 14.6 % (11.5-14.5); WBC 4.01 X 10*3/uL (4.50-10.00)
[2025-01-11 20:43] LABS: ALT 25 U/L (10-49); AST 21 U/L (14-35); Albumin 4.2 g/dL (3.8-4.9); Albumin/Globulin Ratio 1.75 Ratio (1.60-3.17); Alkaline Phosphatase 59 U/L (41-126); Anion Gap 12.40 mmol/L (4.00-12.00); BUN/Creat Ratio 16.75 Ratio (12.00-20.00); Blood Urea Nitrogen 26.8 mg/dL (9.0-27.0); Calcium 9.3 mg/dL (8.7-10.3); Carbon Dioxide 24.6 mmol/L (21.6-31.8); Chloride 103 mmol/L (96-109); Globulin 2.4 g/dL (1.6-3.3); Glucose 132 mg/dL (70-110); Potassium 4.3 mmol/L (3.5-5.5); Prostate Specific Antigen 0.22 ng/mL (0.000-6.500); Sodium 140 mmol/L (135-145); T4, Free (Free Thyroxine) 1.04 ng/dL (0.80-1.80); Total Protein 6.6 g/dL (6.2-8.2); Vitamin B12 278.0 pg/mL (200.0-944.0)
== END | disposition home or self-care (01) ==
LOC: LABWHC1 13:54
PROVIDERS: ATTEND Radiology Radiation Oncology
DX: E55.9 Vitamin D deficiency, unspecified (principal); E03.2 Hypothyroidism due to medicaments and other exogenous substances; C61 Malignant neoplasm of prostate; E78.2 Mixed hyperlipidemia; D63.0 Anemia in neoplastic disease; R53.82 Chronic fatigue, unspecified
CPT/HCPCS: 36415; 80053; 82306; 82607; 84153; 84403; 84439; 84443; 84481; 85025